=== PATIENT | male | born 1950 | race Caucasian/White ===

== ENCOUNTER 2017-12-28 15:48 | Inpatient (IN) ==
[2017-12-28] MEDS ORDERED: Tetanus/Diphtheria Toxoid Adult Vaccine Inj 0.5 ML Vial IM ONE (17:43)
[2017-12-28] MEDS ORDERED: Sod Chloride 0.9% Inj 1,000 ML IV.CONT SCH ×2 (17:45→19:30)
[2017-12-28 18:06] LABS: Baso # (Auto) 0.1 th/mm3 (0.0-0.2); Baso % (Auto) 1.5 % (0.0-2.0); Eos # (Auto) 0.1 th/mm3 (0.0-0.4); Eos % (Auto) 1.1 % (0.0-4.0); Hematocrit 39.2 % (39.0-51.0); Hemoglobin 13.6 gm/dL (13.0-17.0); Lymph # (Auto) 1.2 th/mm3 (1.0-4.8); Lymph % (Auto) 15.8 % (9.0-44.0); Mean Corpuscular HGB Conc 34.7 % (32.0-36.0); Mean Corpuscular Hemoglobin 34.2 pg (27.0-34.0); Mean Corpuscular Volume 98.8 fL (80.0-100.0); Mean Platelet Volume 7.3 fL (7.0-11.0); Mono # (Auto) 0.8 th/mm3 (0.0-0.9); Mono % (Auto) 10.4 % (0.0-8.0); Neut # (Auto) 5.2 th/mm3 (1.8-7.7); Neut % (Auto) 71.2 % (16.0-70.0); Platelet Count 361 th/mm3 (150-450); Red Blood Count 3.97 mil/mm3 (4.50-5.90); Red Cell Distribution Width 12.4 % (11.6-17.2); White Blood Count 7.4 th/mm3 (4.0-11.0)
[2017-12-28 18:28] LABS: Troponin I 0.36 ng/mL (0.02-0.05)
[2017-12-28 18:38] LABS: Alanine Aminotransferase 23 U/L (12-78); Alkaline Phosphatase 89 U/L (45-117); Anion Gap 14 meq/L (5-15); Aspartate Aminotransferase 18 U/L (15-37); Blood Urea Nitrogen 79 mg/dL (7-18); Calcium 8.6 mg/dL (8.5-10.1); Carbon Dioxide 16.8 meq/L (21.0-32.0); Chloride 91 meq/L (98-107); Glomerular Filtration Rate 12 mL/min (>89); Glucose,Random 91 mg/dL (74-106); Potassium 3.9 meq/L (3.5-5.1); Total Protein 7.3 g/dL (6.4-8.2)
[2017-12-28 18:44] LABS: Sodium 122 meq/L (136-145)
--- NOTE | 2017-12-28 19:10 | ED ---
HPI General Chief Complaint: Dizziness Stated Complaint: Dizziness/Fall/Hit Head Time Seen by Provider: 12/28/17 17:43 History of Present Illness HPI Narrative: This is a 67-year-old male with a history of hypertension, presents via private vehicle with complaints of dizziness and weakness. Patient states that he has not been feeling well over the last several days. He reports that he feels extremely weak and dizzy. He denies any chest pain, chest pressure. He reports that his blood pressure has been low. His ex- told both he and his nephew who is at the bedside that she thought it may be due to overmedication. Patient denies any shortness of breath. He does report heavy alcohol use up until Tuesday. He does smoke marijuana but denies tobacco products. There are no other complaints at time of examination. Related Data Home Medications Medication Instructions Recorded Confirmed citalopram 20 mg PO DAILY 12/28/17 12/28/17 diphenoxylate-atropine [Lomotil] 1 tab PO Q6-8H PRN 12/28/17 12/28/17 lisinopril 10 mg PO DAILY 12/28/17 12/28/17 metronidazole [Flagyl] 500 mg PO TID 12/28/17 12/28/17 Allergies Allergy/AdvReac Type Severity Reaction Status Date / Time No Known Allergies Allergy Verified 12/28/17 17:38 Review of Systems Constitutional Denies chills and Denies fever(s) Eyes Reports system reviewed and no additional complaints, except as docu ENT Reports dry mouth and Denies neck pain Cardiovascular Denies chest pain, Denies rapid heart rate, Denies palpitations and Reports other (Weakness.) Respiratory Denies pain on inspiration, Denies dyspnea and Denies dyspnea on exertion Gastrointestinal Denies abdominal pain, Denies nausea, Denies vomiting and Reports other (Poor appetite.) Genitourinary Denies dysuria and Reports other (Decreased urine output) Musculoskeletal Denies numbness, Denies tingling and Reports other (Generalized weakness) Neurologic Reports dizziness, Reports headache(s) and Reports weakness PMFSH Social History Social History Substance History: Active Abuse Second Hand Smoke Exposure: No Smoking Status: Former smoker Tobacco Type: Cigarettes How Often Do You Have a Drink Containing Alcohol: Never Recent Travel in [facility] within the Last 8 Weeks: No Recent Out of Country Travel within the Last 8 Weeks: No Substance Abuse Detail Marijuana: Substance Use Status: Active Route Used Substance Abuse: Inhalation Reason for Use: Feels Good Immunization History Tetanus Immunization: Unsure Exam Narrative Exam Narrative: GENERAL: Elderly ill-appearing male in no acute respiratory distress. SKIN: Focused skin assessment warm/dry. Positive skin tenting HEAD: Atraumatic. Normocephalic. EYES: No scleral icterus. No injection or drainage. ENT: No nasal bleeding or discharge. Mucous membranes pink and moist. NECK: Trachea midline. Supple. CARDIOVASCULAR: Regular rate and rhythm. No murmur appreciated. RESPIRATORY: No accessory muscle use. Clear to auscultation. Breath sounds equal bilaterally. GASTROINTESTINAL: Abdomen soft, non-tender, nondistended. Scaphoid. MUSCULOSKELETAL: No obvious deformities. No clubbing. No cyanosis. No edema. Skin tenting. NEUROLOGICAL: Awake and alert. No obvious cranial nerve deficits. Motor grossly within normal limits. Normal speech. Course Initial Documented Vital Signs Temperature 97.7 F 12/28/17 16:10 Pulse Rate 85 12/28/17 16:10 Respiratory Rate 16 12/28/17 16:10 Blood Pressure 91/51 L 12/28/17 16:10 Pulse Oximetry 99 12/28/17 16:10 Last Documented Vital Signs Temperature 97.7 F 12/28/17 16:10 Pulse Rate 68 12/28/17 18:34 Respiratory Rate 18 12/28/17 18:34 Blood Pressure 105/60 12/28/17 18:34 Pulse Oximetry 96 12/28/17 18:34 Critical Care Time Critical Care Time: Yes Total Critical Care Time: 45 Attestation: Aggregate critical care time was 45 minutes. Time to perform other separately billable procedures was not included in the critical care time. My time did not include minutes spent treating any other patients simultaneously or on activities that did not directly contribute to the patient's treatment. The services I provided to this patient were to treat and/or prevent clinically significant deterioration that could result in: I provided critical care services requiring my management, as noted below: Chart data review, documentation time, medication orders and management, vital sign assessments/reviewing monitor data, ordering and reviewing lab tests, ordering and interpreting/reviewing x-rays and diagnostic studies, care of the patient and discussion of the patient with the admitting physicians. Medical Decision Making MDM Narrative Medical decision making narrative: 67-year-old male with history of hypertension , presents here with dizziness and weakness. Patient has an acute ST elevation [place] on his cardiac EKG. His troponin is 0.35. Patient is also in acute renal failure and hyponatremicc. Case was discussed with on-call director of accounts receivable, Dr. Aamir Cardoso who agrees at this point he is not a cardiac cath candidate. Aspirin was held at this point until the CAT scan was done. Once CAT scan is back and negative, he will be started on 324 of aspirin and started on a heparin drip. Case was discussed with Dr. Harding, fur operator, who agrees with the transfer to the main hospital for admission. Medical Screen Exam Complete: Yes Emergency Medical Condition: Yes Differential Diagnosis Differential Diagnosis: Dehydration versus metabolic derangement versus infection versus intracranial injury Lab Data Result diagrams: 12/28/17 17:45 12/28/17 17:45 Lab Results 12/28/17 12/28/17 12/28/17 Range/Units 17:45 17:45 17:45 CBC w Diff Auto diff final WBC 7.4 (4.0-11.0) th/mm3 RBC 3.97 L (4.50-5.90) mil/mm3 Hgb 13.6 (13.0-17.0) gm/dL Hct 39.2 (39.0-51.0) % MCV 98.8 (80.0-100.0) fL MCH 34.2 H (27.0-34.0) pg MCHC 34.7 (32.0-36.0) % RDW 12.4 (11.6-17.2) % Plt Count 361 (150-450) th/mm3 MPV 7.3 (7.0-11.0) fL Neut % (Auto) 71.2 H (16.0-70.0) % Lymph % (Auto) 15.8 (9.0-44.0) % [place] % (Auto) 10.4 H (0.0-8.0) % Eos % (Auto) 1.1 (0.0-4.0) % Baso % (Auto) 1.5 (0.0-2.0) % Neut # (Auto) 5.2 (1.8-7.7) th/mm3 Lymph # (Auto) 1.2 (1.0-4.8) th/mm3 [place] # (Auto) 0.8 (0.0-0.9) th/mm3 Eos # (Auto) 0.1 (0.0-0.4) th/mm3 Baso # (Auto) 0.1 (0.0-0.2) th/mm3 WBC Differential . Differential Comment . Sodium 122 L* (136-145) meq/L Potassium 3.9 (3.5-5.1) meq/L Chloride 91 L (98-107) meq/L Carbon Dioxide 16.8 L (21.0-32.0) meq/L Anion Gap 14 (5-15) meq/L BUN 79 H (7-18) mg/dL Creatinine 4.90 H (0.60-1.30) mg/dL Estimated GFR 12 L (>89) mL/min Random Glucose 91 (74-106) mg/dL Calcium 8.6 (8.5-10.1) mg/dL Total Bilirubin 0.3 (0.2-1.0) mg/dL AST 18 (15-37) U/L ALT 23 (12-78) U/L Alkaline Phosphatase 89 (45-117) U/L Total Creatine Kinase 93 (39-308) U/L Troponin I 0.36 H (0.02-0.05) ng/mL Total Protein 7.3 (6.4-8.2) g/dL Albumin 4.0 (3.4-5.0) g/dL Imaging Data Radiologist's impression: Head CT 12/28/17 17:43 CONCLUSION: 1. Negative trauma CT. . Discharge Plan Discharge Disposition Patient Disposition: 30 Still Patient Discharge Details Diagnosis: Acute ST elevation myocardial infarction (STEMI), Acute renal failure, Hyponatremia Physicians Team ED Provider: Parish Harrell Primary Care Provider: Michel Bonilla Rxs /Orders / Referrals /Forms Prescriptions: No Action diphenoxylate-atropine [Lomotil] 2.5-0.025 mg Tablet 1 tab PO Q6-8H PRN (Reason: Diarrhea) RF: 0 metronidazole [Flagyl] 500 mg Tablet 500 mg PO TID RF: 0 citalopram 20 mg Tablet 20 mg PO DAILY RF: 0 lisinopril 10 mg Tablet 10 mg PO DAILY RF: 0 Status ED Status: With Doctor
[2017-12-28] MEDS ORDERED: Acetaminophen 325 MG Tablet PO PRN (19:21)
[2017-12-28] MEDS ORDERED: Bisacodyl 10 MG Supp RECTAL PRN (19:21)
[2017-12-28] MEDS ORDERED: Morphine Sulfate Inj 2 MG/ML Vial IV.PUSH PRN (19:21)
[2017-12-28] MEDS ORDERED: Aspirin 325 MG Tablet PO ONE (19:24)
[2017-12-28] MEDS ORDERED: Heparin 10,000 UNITS/10 ML Vial (for IV use) IV.PUSH STA (19:24)
--- NOTE | 2017-12-28 19:25 | CT ---
EXAM DATE: 12/28/2017 7:19 PM EDT AGE/SEX: 67 years / Male INDICATIONS: Trauma. Fall. Cephalgia. CLINICAL DATA: This is the patient's initial encounter. Patient reports that signs and symptoms have been present for 1 day and indicates a pain score of 7/10. MEDICAL/SURGICAL HISTORY: Hypertension. None. RADIATION DOSE: 63.93 CTDI (mGy) COMPARISON: No prior exams available for comparison. TECHNIQUE: CT of the head without contrast. Using automated exposure control and adjustment of the mA and/or kV according to patient size, radiation dose was kept as low as reasonably achievable to ob tain optimal diagnostic quality images. DICOM format image data is available electronically for revi ew and comparison. FINDINGS: Cerebrum: The ventricles are normal for age. No evidence of midline shift, mass lesion, hemorrhage or acute infarction. No extraaxial fluid collections are seen. Posterior Fossa: The cerebellum and brainstem are intact. The 4th ventricle is midline. The cerebe llopontine angle is unremarkable. Extracranial: The visualized portion of the orbits is intact. Skull: The calvaria is intact. No evidence of skull fracture. CONCLUSION: 1. Negative trauma CT. . Electronically signed by: Devin Rothman MD 12/28/2017 7:23 PM EDT
--- NOTE | 2017-12-28 19:29 | CT ---
EXAM DATE: 12/28/2017 7:22 PM EDT AGE/SEX: 67 years / Male INDICATIONS: Trauma. Fall. Neck pain. CLINICAL DATA: This is the patient's initial encounter. Patient reports that signs and symptoms have been present for 1 day and indicates a pain score of 7/10. MEDICAL/SURGICAL HISTORY: Hypertension. None. RADIATION DOSE: 26.69 CTDI (mGy) COMPARISON: . TECHNIQUE: Contiguous axial images were obtained using helical multirow detector technique. The vol umetric data was post-processed with multiplanar reconstruction in oblique axial, sagittal, and coron al planes. Using automated exposure control and adjustment of the mA and/or kV according to patient s ize, radiation dose was kept as low as reasonably achievable to obtain optimal diagnostic quality paxton ges. DICOM format image data is available electronically for review and comparison. FINDINGS: Vertebrae: Normal vertebral body height. Diffuse osteopenia. Discs: Diffuse degenerative disc changes are present with disc space narrowing and anterior spurring. Alignment: Normal. No subluxation. The axial images demonstrate that the vertebral bodies and posterior elements are intact. Degenerativ e disc changes noted with disc osteophyte complexes. There are hypertrophic changes involving the fac et joints. CONCLUSION: 1. Negative trauma CT. Electronically signed by: Devin Rothman MD 12/28/2017 7:28 PM EDT
[2017-12-28 19:48] LABS: Activated Partial Thrombo Time 26.7 sec (24.3-30.1); INR 0.9 Ratio; Prothrombin Time 9.3 sec (9.8-11.6)
[2017-12-28 19:58] LABS: Baso # (Auto) 0.1 th/mm3 (0.0-0.2); Eos # (Auto) 0.1 th/mm3 (0.0-0.4); Eos % (Auto) 1.5 % (0.0-4.0); Hematocrit 38.5 % (39.0-51.0); Hemoglobin 13.5 gm/dL (13.0-17.0); Lymph % (Auto) 13.8 % (9.0-44.0); Mean Corpuscular HGB Conc 35.2 % (32.0-36.0); Mean Corpuscular Hemoglobin 34.5 pg (27.0-34.0); Mean Corpuscular Volume 98.1 fL (80.0-100.0); Mean Platelet Volume 7.3 fL (7.0-11.0); Mono # (Auto) 0.7 th/mm3 (0.0-0.9); Mono % (Auto) 9.3 % (0.0-8.0); Neut # (Auto) 5.2 th/mm3 (1.8-7.7); Neut % (Auto) 74.4 % (16.0-70.0); Platelet Count 353 th/mm3 (150-450); Red Blood Count 3.92 mil/mm3 (4.50-5.90); White Blood Count 7.1 th/mm3 (4.0-11.0)
[2017-12-28 20:22] LABS: Troponin I 0.28 ng/mL (0.02-0.05)
[2017-12-28] MEDS: Heparin Drip 25,000 UNIT/250 ML BAG IV.CONT PRN (20:32)
[2017-12-28 20:42] LABS: Calcium 8.4 mg/dL (8.5-10.1); Carbon Dioxide 15.6 meq/L (21.0-32.0); Potassium 3.8 meq/L (3.5-5.1)
[2017-12-28] MEDS ORDERED: Sod Chloride 0.9% Inj 1,000 ML IV.SIG SCH (22:00)
--- NOTE | 2017-12-28 22:08 | P.HPCC ---
History of Present Illness Primary Care Physician: Michel Bonilla DO Chief Complaint: Recurrent fall, fatigue History of Present Illness: This is a 67-year-old male with a history of recently diagnosed hypertension, alcohol dependence who presented to the emergency department at [facility] for evaluation of dizziness and weakness. Not feeling well over the last several days, had been kami weak and dizzy with recurrent falls. He denies any chest pain. He had been recently started on lisinopril for hypertension. He also gives a history of heavy alcohol use more than 6 beers a day, last drink was 2 days ago Tuesday. Patient was hypotensive in the ED blood pressure 81/44. He received 2 L normal saline boluses. Lab work showed sodium was 122 BUN 79 creatinine 4.9, troponin was 0.36. Patient was essentially anuric since arrival to the ED. EKG showed ST elevations in the inferior leads however patient completely denied chest pain. Dr. Cardoso was contacted by Dr. Harrell who requested patient to be transferred to the [facility] hospital. Once creatinine improves and patient stabilizes he will consider cardiac catheterization. I evaluated the patient in the CVICU. He appears critically ill dehydrated. He still has not made any urine. I have requested Aponte to be inserted will give additional 1 L fluid bolus. On further history he completely CV denies chest pain. Even though he has ST elevations in the inferior leads his initial troponin was 0.36 and repeat troponin is trending down to 0.28. I will check a repeat EKG but I doubt at this time he meets STEMI criteria. CT of the head and neck had been negative. I have ordered aspirin and IV heparin. Cardiology and nephrology consults are pending at this time. 2 D Echo also ordered Inpatient Certification: I certify that the inpatient services were ordered in accordance with Medicare regulations governing the order. This includes certification that hospital inpatient services are reasonable and necessary and in the case of services not specified as inpatient-only under 42 CFR 419.22(n), that they are appropriately provided as inpatient services in accordance to with the 2-midnight benchmark under 43 CFR 412.3(e) Estimated Total Length of Stay (Days): 7 Plans for Post Hospital Care: Not yet determined Review of Systems All other systems reviewed negative except as stated in HPI PMFSH - History History Provided By: Patient - Medical History Medical History: Medical History (Last Reviewed 12/28/17 @ 21:46 by Gladis Huitron RN) Chronic diarrhea Depression Hypertension Squamous cell carcinoma - Tobacco History Second Hand Smoke Exposure: No Tobacco Use In Past 30 Days: No Smoking Status: Former smoker Tobacco Type: Cigarettes - Alcohol History How Often Do You Have a Drink Containing Alcohol: Never - Substance Use History Substance History: Active Abuse - Substance Use Type Marijuana Status: Active Route Used: Inhalation Reason for Use: Feels Good - Travel History Recent Travel in the [place] Within the Last 8 Weeks: No Recent Travel Out of the Country Within the Last 8 Weeks: No - Immunization History Tetanus Immunization: Unsure Medications and Allergies Active Medications: Active Medications Acetaminophen (Tylenol) 650 mg PO Q6H PRN PRN Reason: PAIN 1-2 AND/OR FEVER >101F Al Hydroxide/Mg Hydroxide (Milk Of Magnerin Liq) 30 ml PO Q12H PRN PRN Reason: Mild Constipation Albuterol (Duoneb Neb (Prn)) 1 ampul NEB Q2HR NEB PRN PRN Reason: WHEEZING Aspirin (Aspirin Chew) 81 mg PO DAILY GUERRERO Bisacodyl (Dulcolax Supp) 10 mg RECTAL DAILY PRN PRN Reason: SEVERE CONSITIPATION Chlorhexidine Gluconate (Chlorhexidine 2% Cloth) 3 pack TOPICAL DAILY@0400 GUERRERO Stop: 01/03/18 03:59 Chlorhexidine Gluconate (Chlorhexidine 2% Cloth) 3 pack TOPICAL DAILY@0400 PRN PRN Reason: Extra cloth needed Stop: 01/03/18 03:59 Famotidine (Pepcid Pf Inj) 20 mg IV.PUSH Q12HR GUERRERO Sodium Chloride (Ns Inj) 1,000 mls @ 100 mls/hr IV.CONT .Q10H GUERRERO Last Admin: 12/28/17 17:52 Dose: 100 mls/hr Heparin Sodium/Dextrose (Heparin/D5w 25,000 U/250 Ml) 25,000 unit in 250 mls @ 0 mls/hr IV.CONT TITRATE PRN; Protocol PRN Reason: Per Protocol Last Admin: 12/28/17 20:32 Dose: 900 units/hr, 9 mls/hr Sodium Chloride (Ns Inj) 1,000 mls @ 100 mls/hr IV.CONT .Q10H GUERRERO Sodium Chloride (Ns Inj) 1,000 mls @ 84 mls/hr IV.CONT .[id number] GUERRERO Sodium Chloride (Ns Inj) 1,000 mls @ 1,000 mls/hr IV.SIG BOLUS [facility] Stop: 12/28/17 22:59 Lactulose (Lactulose Liq) 30 ml PO DAILY PRN PRN Reason: SEVERE CONSITIPATION Morphine Sulfate (Morphine Inj) 2 mg IV.PUSH Q2H PRN PRN Reason: PAIN SCALE 6 TO 10 Senna/Docusate Sodium (Park-Colace) 1 tab PO BID [facility] Sennosides (Senokot) 17.2 mg PO Q12H PRN PRN Reason: Moderate Constipation Sodium Chloride (Ns Flush) 2 ml IV.FLUSH PRN PRN PRN Reason: FLUSH AFTER USING IV ACCESS Sodium Chloride (Ns Flush) 2 ml IV.FLUSH PRN PRN PRN Reason: FLUSH AFTER USING IV ACCESS Sodium Chloride (Ns Flush) 2 ml IV.FLUSH BID GU[facility]ERO Sodium Chloride (Ns Flush) 2 ml IV.FLUSH PRN PRN PRN Reason: FLUSH AFTER USING IV ACCESS Allergies Allergy/AdvReac Type Severity Reaction Status Date / Time No Known Allergies Allergy Verified 12/28/17 17:38 Home Medications Medication Instructions Recorded Confirmed Type citalopram 20 mg PO DAILY 12/28/17 12/28/17 History diphenoxylate-atropine [Lomotil] 1 tab PO Q6-8H PRN 12/28/17 12/28/17 History lisinopril 10 mg PO DAILY 12/28/17 12/28/17 History metronidazole [Flagyl] 500 mg PO TID 12/28/17 12/28/17 History Results - Labs CBC & Chem 7: 12/28/17 19:40 12/28/17 19:40 Labs: Short CBC 12/28/17 12/28/17 Range/Units 17:45 19:40 WBC 7.4 7.1 (4.0-11.0) th/mm3 Hgb 13.6 13.5 (13.0-17.0) gm/dL Hct 39.2 38.5 L (39.0-51.0) % Plt Count 361 353 (150-450) th/mm3 BMP 12/28/17 12/28/17 17:45 19:40 Sodium 122 L* 122 L* Potassium 3.9 3.8 Chloride 91 L 91 L Carbon Dioxide 16.8 L 15.6 L BUN 79 H 80 H Creatinine 4.90 H 4.90 H Calcium 8.6 8.4 L Cardiac Enzymes 12/28/17 12/28/17 Range/Units 17:45 19:40 Total Creatine Kinase 93 89 (39-308) U/L Troponin I 0.36 H 0.28 H (0.02-0.05) ng/mL Liver Function 12/28/17 Range/Units 17:45 Total Bilirubin 0.3 (0.2-1.0) mg/dL AST 18 (15-37) U/L ALT 23 (12-78) U/L Alkaline Phosphatase 89 (45-117) U/L Albumin 4.0 (3.4-5.0) g/dL - Imaging Impressions Cervical Spine CT 12/28/17 17:43 CONCLUSION: 1. Negative trauma CT. Head CT 12/28/17 17:43 CONCLUSION: 1. Negative trauma CT. . Exam Vital signs: Vital Signs 12/28/17 16:10 12/28/17 17:46 12/28/17 18:34 Temperature 97.7 F Pulse Rate 85 88 68 Respiratory Rate 16 18 18 Blood Pressure 91/51 L 81/44 L 105/60 Pulse Oximetry 99 95 96 12/28/17 20:28 Temperature Pulse Rate 72 Respiratory Rate 18 Blood Pressure 108/58 L Pulse Oximetry 97 Intake & Output 12/28/17 12/28/17 12/29/17 06:59 18:59 06:59 Weight 73.6 kg Narrative: GENERAL: Ill-appearing male who is dehydrated in moderate distress SKIN: warm/dry. HEAD: Abrasion on the forehead. Normocephalic. EYES: No scleral icterus. No injection or drainage. ENT: No nasal bleeding or discharge. Mucous membranes dry NECK: Trachea midline. Supple. CARDIOVASCULAR: Regular rate and rhythm. No murmur appreciated. RESPIRATORY: No accessory muscle use. Clear to auscultation. Breath sounds equal bilaterally. GASTROINTESTINAL: Abdomen soft, non-tender, nondistended. Scaphoid. MUSCULOSKELETAL: No obvious deformities. No clubbing. No cyanosis. No edema. NEUROLOGICAL: Awake and alert. No obvious cranial nerve deficits. Motor grossly within normal limits. No evidence of alcohol withdrawal Septic Shock Reassessment Septic shock perfusion: reassessment completed Caprini VTE Risk Assessment Caprini VTE Risk Assessment: Moderate/High Risk (score >= 2) Caprini Risk Assessment Model: Point Value = 1 Point Value = 2 Point Value = 3 Point Value = 5 Age 41-60 Minor surgery BMI > 25 kg/m2 Swollen legs Varicose veins or History of unexplained or recurrent spontaneous Oral contraceptives or hormone replacement Sepsis (< 1 month) Serious lung disease, including pneumonia (< 1 month) Abnormal pulmonary function Acute myocardial infarction Congestive heart failure (< 1 month) History of inflammatory bowel disease Medical patient at bed rest Age 61-74 Arthroscopic surgery Major open surgery (> 45 min) Laparoscopic surgery (> 45 min) Malignancy Confined to bed (> 72 hours) Immobilizing plaster cast Central venous access Age >= 75 History of VTE Family history of VTE Factor V Leiden Prothrombin [id number] Lupus anticoagulant Anticardiolipin antibodies Elevated serum homocysteine Heparin-induced thrombocytopenia Other congenital or acquired thrombophilia Stroke (< 1 month) Elective arthroplasty Hip, pelvis, or leg fracture Acute spinal cord injury (< 1 month) Prophylaxis Regimen: Total Risk Factor Score Risk Level Prophylaxis Regimen 0-1 Low Early ambulation 2 Moderate Order ONE of the following: *Sequential Compression Device (SCD) *Heparin 5000 units SQ BID 3-4 Higher Order ONE of the following medications: *Heparin 5000 units SQ TID *Enoxaparin/Lovenox 40 mg SQ daily (WT < 150 kg, CrCl > 30 mL/min) *Enoxaparin/Lovenox 30 mg SQ daily (WT < 150 kg, CrCl > 10-29 mL/min) *Enoxaparin/Lovenox 30 mg SQ BID (WT < 150 kg, CrCl > 30 mL/min) AND/OR *Sequential Compression Device (SCD) 5 or more Highest Order ONE of the following medications: *Heparin 5000 units SQ TID (Preferred with Epidurals) *Enoxaparin/Lovenox 40 mg SQ daily (WT < 150 kg, CrCl > 30 mL/min) *Enoxaparin/Lovenox 30 mg SQ daily (WT < 150 kg, CrCl > 10-29 mL/min) *Enoxaparin/Lovenox 30 mg SQ BID (WT < 150 kg, CrCl > 30 mL/min) AND *Sequential Compression Device (SCD) Assessment and Plan - Assessment and Plan Plan: NEURO: Alcohol dependence -Supplement multivitamin thiamine -Watch closely for alcohol withdrawal, no indication for CIWA protocol at this time RESP: -DuoNeb every 6 hours as needed CV: Hypotension Elevated troponin ST elevation in the inferior leads/possible STEMI -Hypotension most likely secondary to dehydration -Give total 3 L IV fluids, maintenance fluid at 84 mL/h of normal saline -Patient denies chest pain troponin initially 0.3 6 repeat 0.28 -Will repeat EKG but doubt STEMI -Cardiology Dr. Cardoso is aware -Placed on IV heparin and aspirin, cannot use beta-blockers due to hypotension -Await 2d echo, repeat troponin GI: -Renal diet, IV famotidine : Acute kidney failure -Monitor renal function closely. Place Aponte catheter. -Renal ultrasound, nephrology consult -Check UA complete -Renal failure secondary to dehydration and ATN ID: -No indication for antibiotics at this time HEME: -Monitor CBC, coags ENDO: Hyponatremia -Continue IV hydration with normal saline, target slow correction of sodium PROPH: -Bilateral lower extremity SCDs. IV heparin, IV famotidine LINES: -Utilize peripheral IVs, central line if needed CC time 42 min
[2017-12-29 00:05] LABS: Amphetamine Screen,Urine Neg (Neg); Barbiturate Screen,Urine Neg (Neg); Cannabinoid Screen,Urine Pos (Neg); Cocaine Screen,Urine Neg (Neg)
[2017-12-29 00:06] LABS: Opiate Screen,Urine Neg (Neg)
[2017-12-29] MEDS: Senna/Docusate Sodium 8.6/50 MG Tablet PO SCH ×3 (01:05→20:40)
[2017-12-29] MEDS: Sodium Bicarbonate 8.4% Inj 50 MEQ/50 ML Syringe IV.PUSH ONE ×2 (01:08→01:41)
[2017-12-29] MEDS: Sod Chloride 0.9% Inj 1,000 ML IV.CONT SCH ×2 (01:08→12:35)
[2017-12-29] MEDS: Famotidine PF Inj 20 MG/2 ML Vial IV.PUSH SCH ×4 (01:08→20:28)
[2017-12-29] MEDS ORDERED: Chlorhexidine Gluconate 2% 1 Pack (2 Cloths) TOPICAL PRN (04:00)
[2017-12-29 04:04] LABS: Bilirubin,Urine Negative (Negative); Clarity,Urine Slightly Cloudy (Clear); Color,Urine Yellow (Yellw/Straw); Glucose,Urine (UA) Negative (Negative); Leukocyte Esterase,Urine Small (Negative); Nitrite,Urine Negative (Negative); Urobilinogen,Urine 0.2 mg/dL (Less than 2)
[2017-12-29] MEDS: Chlorhexidine Gluconate 2% 1 Pack (2 Cloths) TOPICAL SCH (04:12)
[2017-12-29 04:21] LABS: RBC,Urine Innumerable /hpf (0-3); Squamous Epithelial Cell,Urine 0-5 /hpf (0-5)
[2017-12-29 04:22] LABS: Bacteria,Urine Few /hpf; Hyaline Casts,Urine 0-3 /lpf (0-3); Mucus,Urine Moderate /lpf (Occasional)
[2017-12-29 04:23] LABS: Specific Gravity,Urine 1.011 (1.002-1.035)
[2017-12-29 08:29] LABS: Baso % (Auto) 0.6 % (0.0-2.0); Eos # (Auto) 0.1 th/mm3 (0.0-0.4); Eos % (Auto) 0.9 % (0.0-4.0); Lymph # (Auto) 0.7 th/mm3 (1.0-4.8); Lymph % (Auto) 12.1 % (9.0-44.0); Mean Corpuscular HGB Conc 35.3 % (32.0-36.0); Mean Corpuscular Volume 99.3 fL (80.0-100.0); Mean Platelet Volume 7.9 fL (7.0-11.0); Mono # (Auto) 0.5 th/mm3 (0.0-0.9); Mono % (Auto) 8.5 % (0.0-8.0); Neut # (Auto) 4.6 th/mm3 (1.8-7.7); Neut % (Auto) 77.9 % (16.0-70.0); Platelet Count 309 th/mm3 (150-450); Red Blood Count 3.42 mil/mm3 (4.50-5.90); Red Cell Distribution Width 12.7 % (11.6-17.2); White Blood Count 5.9 th/mm3 (4.0-11.0)
[2017-12-29 09:22] LABS: Albumin 2.8 g/dL (3.4-5.0); Calcium 7.4 mg/dL (8.5-10.1); Carbon Dioxide 16.7 meq/L (21.0-32.0); Magnesium 1.9 mg/dL (1.5-2.5); Phosphorus 4.2 mg/dL (2.5-4.9); Potassium 3.8 meq/L (3.5-5.1); Total Protein 5.5 g/dL (6.4-8.2); Troponin I 0.26 ng/mL (0.02-0.05)
--- NOTE | 2017-12-29 10:37 | ECHRPT ---
Indication: CHEST PAIN CONCLUSIONS Normal left ventricular size. Wall thickness is measured at the upper limits of normal. The left ventricular systolic function is low normal with an estimated ejection fraction in the rang e of 50- 55%. Calcification of both mitral valve leaflets. Severe mitral annular calcification. There is mild tricuspid valve regurgitation. The estimated pulmonary arterial pressure is 23 mmHg. BP: / HR: Rhythm: MEASUREMENTS (Male / Female) Normal Values Technical Quality: 2D ECHO LV Diastolic Diameter PLAX 2.8 cm 4.2 - 5.9 / 3.9 - 5.3 cm LV Systolic Diameter PLAX 2.3 cm IVS Diastolic Thickness 1.1 cm 0.6 - 1.0 / 0.6 - 0.9 cm LVPW Diastolic Thickness 1.3 cm 0.6 - 1.0 / 0.6 - 0.9 cm LV Relative Wall Thickness 0.9 RV Internal Dim ED PLAX 2.8 cm LVOT Diameter 1.6 cm Aortic Root Diameter 3.0 cm LA Systolic Diameter LX 3.6 cm 3.0 - 4.0 / 2.7 - 3.8 cm LV Ejection Fraction MOD BP 50.6 % >= 55 % LV Ejection Fraction MOD 4C 51.9 % LV Ejection Fraction 4C AL 54.1 % LV Ejection Fraction MOD 2C 51.5 % LV Ejection Fraction 2C AL 52.9 % M-MODE Aortic Root Diameter MM 3.3 cm LA Systolic Diameter MM 2.8 cm LA Ao Ratio MM 0.8 AV Cusp Separation MM 1.7 cm DOPPLER AV Peak Velocity 176.0 cm/s AV Peak Gradient 12.4 mmHg LVOT Peak Velocity 130.0 cm/s LVOT Peak Gradient 6.8 mmHg AV Area Cont Eq pk 1.5 cm Mitral E Point Velocity 68.0 cm/s Mitral A Point Velocity 122.0 cm/s Mitral E to A Ratio 0.6 LV E' Lateral Velocity 8.2 cm/s Mitral E to LV E' Lateral Ratio 8.3 LV E' Septal Velocity 5.9 cm/s Mitral E to LV E' Septal Ratio 11.4 TR Peak Velocity 177.0 cm/s TR Peak Gradient 12.5 mmHg Right Atrial Pressure 10.0 mmHg Pulmonary Artery Systolic Pressu 22.5 mmHg Right Ventricular Systolic Press 22.5 mmHg FINDINGS LEFT VENTRICLE Normal left ventricular size. Wall thickness is measured at the upper limits of normal. The left ventricular systolic function is low normal with an estimated ejection fraction in the rang e of 50- 55%. There was limited left ventricular wall motion assessment due to poor endocardial visualization. RIGHT VENTRICLE Normal right ventricular size and systolic function. LEFT ATRIUM The left atrial size is normal. RIGHT ATRIUM The right atrial size is normal. ATRIAL SEPTUM Normal atrial septal thickness without atrial level shunting by limited color doppler interrogation. AORTA The aortic root and proximal ascending aorta are normal in size on limited imaging. MITRAL VALVE Calcification of both mitral valve leaflets. Severe mitral annular calcification. No mitral valve stenosis or regurgitation. AORTIC VALVE Trileaflet aortic valve. No aortic valve stenosis or regurgitation. TRICUSPID VALVE There is mild tricuspid valve regurgitation. The estimated pulmonary arterial pressure is 23 mmHg. PULMONARY VALVE No pulmonary valve regurgitation or stenosis. VESSELS The inferior vena cava is normal in size. PERICARDIUM No pericardial effusion. Binh Russell (Electronically Signed) Final Date:29 December 2017 10:36
--- NOTE | 2017-12-29 11:26 | P.CONNP ---
History of Present Illness Service: Nephrology Reason for Consult: ALEXANDRA, hyponatremia Primary Care Provider: Michel Bonilla DO Chief Complaint: Recurrent fall, fatigue History of Present Illness: Mr. Ruiz is a 67 year old male who has been having recurrent episodes of dizziness, weakness and falls. He was admitted with these complaints. Was found to have creatinine of 4.9 and serum Na of 122. Patient reports that he has been having diarrhea for several weeks. Took NSAID about 3 weeks ago. Also started taking Lisinopril about 3 weeks ago. Baseline renal function is not available. He also admits that he has some degree of nocturia, and therefore had reduced fluid intake. Patient was thought to have STEMI, plans were made for primary angioplasty, but because of renal failure, it was not accomplished. He is currently on Heparin drip. Cardiology on the case. Review of Systems Constitutional: Reports anorexia, Reports weakness Eyes: Denies blind spots, Denies blurry vision Cardiovascular: Denies chest pain, Denies excessive sweating, Denies shortness of breath Gastrointestinal: Denies abdominal pain Comments: diarrhea Musculoskeletal: Denies abnormal walking, Denies back pain PMFSH - History History Provided By: Patient - Medical History Medical History: Medical History (Last Reviewed 12/28/17 @ 21:46 by Gladis Huitron RN) Chronic diarrhea Depression Hypertension Squamous cell carcinoma - Tobacco History Second Hand Smoke Exposure: No Tobacco Use In Past 30 Days: No Smoking Status: Former smoker Tobacco Type: Cigarettes - Alcohol History How Often Do You Have a Drink Containing Alcohol: Never - Substance Use History Substance History: Active Abuse - Substance Use Type Marijuana Status: Active Route Used: Inhalation Reason for Use: Feels Good - Travel History Recent Travel in the [place] Within the Last 8 Weeks: No Recent Travel Out of the Country Within the Last 8 Weeks: No - Immunization History Tetanus Immunization: Unsure Medications and Allergies Active Medications: Active Medications Acetaminophen (Tylenol) 650 mg PO Q6H PRN PRN Reason: PAIN 1-2 AND/OR FEVER >101F Al Hydroxide/Mg Hydroxide (Milk Of Magnesia Liq) 30 ml PO Q12H PRN PRN Reason: Mild Constipation Albuterol (Duoneb Neb (Prn)) 1 ampul NEB Q2HR NEB PRN PRN Reason: WHEEZING Aspirin (Aspirin Chew) 81 mg PO DAILY [facility] Last Admin: 12/29/17 09:58 Dose: 81 mg Bisacodyl (Dulcolax Supp) 10 mg RECTAL DAILY PRN PRN Reason: SEVERE CONSITIPATION Chlorhexidine Gluconate (Chlorhexidine 2% Cloth) 3 pack TOPICAL DAILY@0400 [facility] Stop: 01/03/18 03:59 Last Admin: 12/29/17 04:12 Dose: Not Given Chlorhexidine Gluconate (Chlorhexidine 2% Cloth) 3 pack TOPICAL DAILY@0400 PRN PRN Reason: Extra cloth needed Stop: 01/03/18 03:59 Famotidine (Pepcid Pf Inj) 10 mg IV.PUSH Q12HR [facility] Heparin Sodium/Dextrose (Heparin/D5w 25,000 U/250 Ml) 25,000 unit in 250 mls @ 0 mls/hr IV.CONT TITRATE PRN; Protocol PRN Reason: Per Protocol Last Titration: 12/29/17 08:00 Dose: 600 units/hr, 6 mls/hr Ceftriaxone Sodium 1,000 mg/ (Sodium Chloride) 100 mls @ 200 mls/hr IV.SIG Q24H [facility] Last Infusion: 12/29/17 10:42 Dose: Infused Sodium Chloride (1/2 Normal Saline Inj) 1,000 mls @ 84 mls/hr IV.CONT .[id number] [facility] Lactulose (Lactulose Liq) 30 ml PO DAILY PRN PRN Reason: SEVERE CONSITIPATION Morphine Sulfate (Morphine Inj) 2 mg IV.PUSH Q2H PRN PRN Reason: PAIN SCALE 6 TO 10 Senna/Docusate Sodium (Park-Colace) 1 tab PO BID [facility] Last Admin: 12/29/17 10:00 Dose: Not Given Sennosides (Senokot) 17.2 mg PO Q12H PRN PRN Reason: Moderate Constipation Sodium Chloride (Ns Flush) 2 ml IV.FLUSH BID [facility] Last Admin: 12/29/17 09:59 Dose: 2 ml Sodium Chloride (Ns Flush) 2 ml IV.FLUSH PRN PRN PRN Reason: FLUSH AFTER USING IV ACCESS Allergies Allergy/AdvReac Type Severity Reaction Status Date / Time No Known Allergies Allergy Verified 12/28/17 17:38 Home Medications Medication Instructions Recorded Confirmed Type citalopram 20 mg PO DAILY 12/28/17 12/28/17 History diphenoxylate-atropine [Lomotil] 1 tab PO Q6-8H PRN 12/28/17 12/28/17 History lisinopril 10 mg PO DAILY 12/28/17 12/28/17 History metronidazole [Flagyl] 500 mg PO TID 12/28/17 12/28/17 History Exam Vital signs: Vital Signs 12/28/17 16:10 12/28/17 17:46 12/28/17 18:34 Temperature 97.7 F Pulse Rate 85 88 68 Respiratory Rate 16 18 18 Blood Pressure 91/51 L 81/44 L 105/60 Pulse Oximetry 99 95 96 12/28/17 20:28 12/28/17 21:30 12/28/17 23:00 Temperature 98.6 F Pulse Rate 72 96 H 93 H Respiratory Rate 18 16 Blood Pressure 108/58 L 91/54 L Pulse Oximetry 97 94 L 12/29/17 00:00 12/29/17 03:00 12/29/17 04:00 Temperature 98.6 F Pulse Rate 83 Respiratory Rate 18 16 18 Blood Pressure 103/54 L Pulse Oximetry 97 12/29/17 07:45 Temperature 97.4 F L Pulse Rate 83 Respiratory Rate 16 Blood Pressure 102/52 L Pulse Oximetry Intake & Output 12/28/17 12/29/17 12/29/17 18:59 06:59 18:59 Intake Total 1440 / 1440 100 / 100 Output Total 550 / 550 Balance 890 / 890 100 / 100 Weight 73.6 kg 72 kg Intake: IV 1200 / 1200 100 / 100 NS Inj 1,000 ML @ 100 mls/hr IV 300 / 300 .CONT .Q10H [facility] Rx#:[id number] NS Inj 1,000 ML @ 1000 mls/hr 900 / 900 IV.SIG BOLUS [facility] Rx#:[id number] Rocephin Inj 1,000 MG In NS Inj 100 / 100 100 ML @ 200 mls/hr IV.SIG Q24H [facility] Rx#:[id number] Oral 240 / 240 Output: Urine 550 / 550 Other: Date of Last Bowel Movement 12/27/17 12/29/17 Weight On Admission 72 kg - Constitutional no acute distress, chronically ill appearing, cooperative - Routine HEENT Exam Head: Present: normocephalic, atraumatic Eye: Present: EOMI, PERRL ENT: Present: mucous membranes moist - Routine Neck Exam Absent: JVD, carotid bruit, lymphadenopathy, thyromegaly - Routine Respiratory Exam Present: rhonchi, wheezes - Routine Cardiovascular Exam Present: RRR, S1, S2 - Routine Abdominal Exam Present: soft, normoactive bowel sounds - Routine Extremities Exam Absent: edema - Routine Neurological Exam Present: alert, oriented X3, CN II-XII intact, normal speech. Absent: facial asymmetry Results - Lab Results 12/29/17 07:30 12/29/17 07:30 Most recent lab results Calcium 7.4 mg/dL (8.5-10.1) L* D 12/29/17 07:30 Phosphorus 4.2 mg/dL (2.5-4.9) 12/29/17 07:30 Magnesium 1.9 mg/dL (1.5-2.5) 12/29/17 07:30 Assessment and Plan - Assessment (1) Acute renal failure Code(s): N17.9 - Acute kidney failure, unspecified Status: Acute Plan: Likely due to pre-renal azotemia. He has been having diarrhea for several weeks , also admits that he had reduced oral fluid intake. In addition, he was started on Lisinopril 3 weeks ago which could have dropped his BP more than what was desired. At this time, continue IVF. Renal function appears to have improved. No indication for dialysis at this time. Avoid NSAIDs and other nephrotoxic agents. Renal US has been ordered, it is pending. (2) Hyponatremia Code(s): E87.1 - Hypo-osmolality and hyponatremia Status: Acute Plan: Could be hypovolemic hyponatremia. It has improved, correction is more rapid than desired. I will change IVF to 1/2NS (3) Acute ST elevation myocardial infarction (STEMI) Code(s): I21.3 - ST elevation (STEMI) myocardial infarction of unspecified site Status: Acute Plan: Troponin is mildly elevated. Cardiology on the case. - Attending Attestation Thanks for the consult. I will follow. (1) Acute renal failure Qualifiers: Acute renal failure type: unspecified Qualified Code(s): N17.9 - Acute kidney failure, unspecified (3) Acute ST elevation myocardial infarction (STEMI) Qualifiers: Involved coronary artery: unspecified coronary artery Qualified Code(s): I21.3 - ST elevation (STEMI) myocardial infarction of unspecified site
--- NOTE | 2017-12-29 11:59 | P.PNCC ---
Subjective Subjective Remarks/Hospital Course: 12/28: This is a 67-year-old male with a history of recently diagnosed hypertension, alcohol dependence who presented to the emergency department at [facility] for evaluation of dizziness and weakness. Not feeling well over the last several days, had been kami weak and dizzy with recurrent falls. He denies any chest pain. He had been recently started on lisinopril for hypertension. He also gives a history of heavy alcohol use more than 6 beers a day, last drink was 2 days ago Tuesday. Patient was hypotensive in the ED blood pressure 81/44. He received 2 L normal saline boluses. Lab work showed sodium was 122 BUN 79 creatinine 4.9, troponin was 0.36. Patient was essentially anuric since arrival to the ED. EKG showed ST elevations in the inferior leads however patient completely denied chest pain. Dr. Cardoso was contacted by Dr. Harrell who requested patient to be transferred to the [facility]. Once creatinine improves and patient stabilizes he will consider cardiac catheterization. I evaluated the patient in the CVICU. He appears critically ill dehydrated. He still has not made any urine. I have requested Aponte to be inserted will give additional 1 L fluid bolus. On further history he completely CV denies chest pain. Even though he has ST elevations in the inferior leads his initial troponin was 0.36 and repeat troponin is trending down to 0.28. I will check a repeat EKG but I doubt at this time he meets STEMI criteria. CT of the head and neck had been negative. I have ordered aspirin and IV heparin. Cardiology and nephrology consults are pending at this time. 2 D Echo also ordered. 12/29: Resting comfortably in bed. Denies any chest pain or shortness of breath. Not in any acute distress. Objective Vital Signs / I&O: Vital Signs 12/28/17 16:10 12/28/17 17:46 12/28/17 18:34 Temperature 97.7 F Pulse Rate 85 88 68 Respiratory Rate 16 18 18 Blood Pressure 91/51 L 81/44 L 105/60 Pulse Oximetry 99 95 96 12/28/17 20:28 12/28/17 21:30 12/28/17 23:00 Temperature 98.6 F Pulse Rate 72 96 H 93 H Respiratory Rate 18 16 Blood Pressure 108/58 L 91/54 L Pulse Oximetry 97 94 L 12/29/17 00:00 12/29/17 03:00 12/29/17 04:00 Temperature 98.6 F Pulse Rate 83 Respiratory Rate 18 16 18 Blood Pressure 103/54 L Pulse Oximetry 97 12/29/17 07:00 12/29/17 07:45 Temperature 97.4 F L Pulse Rate 83 83 Respiratory Rate 16 Blood Pressure 102/52 L Pulse Oximetry Intake & Output 12/28/17 12/29/17 12/29/17 18:59 06:59 18:59 Intake Total 1440 / 1440 100 / 100 Output Total 550 / 550 Balance 890 / 890 100 / 100 Weight 73.6 kg 72 kg Intake: IV 1200 / 1200 100 / 100 NS Inj 1,000 ML @ 100 mls/hr IV 300 / 300 .CONT .Q10H [facility] Rx#:[id number] NS Inj 1,000 ML @ 1000 mls/hr 900 / 900 IV.SIG BOLUS [facility]ERO Rx#:[id number] Rocephin Inj 1,000 MG In NS Inj 100 / 100 100 ML @ 200 mls/hr IV.SIG Q24H [facility] Rx#:[id number] Oral 240 / 240 Output: Urine 550 / 550 Other: Date of Last Bowel Movement 12/27/17 12/29/17 Weight On Admission 72 kg Result Diagrams: 12/29/17 07:30 12/29/17 07:30 Imaging: Impressions Cervical Spine CT 12/28/17 17:43 CONCLUSION: 1. Negative trauma CT. Head CT 12/28/17 17:43 CONCLUSION: 1. Negative trauma CT. . Objective Remarks: GENERAL: Ill-appearing male laying in bed in no acute distress. SKIN: warm/dry. HEAD: Abrasion on the forehead. Normocephalic. EYES: No scleral icterus. No injection or drainage. ENT: No nasal bleeding or discharge. Mucous membranes dry NECK: Trachea midline. Supple. CARDIOVASCULAR: Regular rate and rhythm. No murmur appreciated. RESPIRATORY: No accessory muscle use. Clear to auscultation. Breath sounds equal bilaterally. GASTROINTESTINAL: Abdomen soft, non-tender, nondistended. Scaphoid. MUSCULOSKELETAL: No obvious deformities. No clubbing. No cyanosis. No edema. NEUROLOGICAL: Awake and alert. No obvious cranial nerve deficits. Motor grossly within normal limits. Assessment and Plan - Assessment and Plan Plan: NEURO: Alcohol dependence -Supplement multivitamin thiamine -Watch closely for alcohol withdrawal, no indication for CIWA protocol at this time RESP: -DuoNeb every 6 hours as needed CV: Hypotension Elevated troponin ST elevation in the inferior leads/possible STEMI -Hypotension most likely secondary to dehydration -Give total 3 L IV fluids on admission. Continue maintenance IV fluids -Patient denies chest pain troponin initially 0.3 6 repeat 0.28 -doubt STEMI -Cardiology Dr. Cardoso is aware -Placed on IV heparin and aspirin, cannot use beta-blockers due to hypotension -Await 2d echo, repeat troponin GI: -Renal diet, IV famotidine : Acute kidney failure -Monitor renal function closely. Place Aponte catheter. -Renal ultrasound, nephrology consult -Check UA complete -Renal failure secondary to dehydration and ATN ID: -No indication for antibiotics at this time HEME: -Monitor CBC, coags ENDO: Hyponatremia -Continue IV hydration with normal saline, target slow correction of sodium PROPH: -Bilateral lower extremity SCDs. IV heparin, IV famotidine LINES: -Utilize peripheral IVs, central line if needed
[2017-12-29] MEDS: Sodium Chloride 0.45 % Inj 1,000 ML IV.CONT SCH (13:00)
--- NOTE | 2017-12-29 15:27 | US ---
EXAM DATE: 12/29/2017 3:23 PM EDT AGE/SEX: 67 years / Male INDICATIONS: Increased BUN/Creatnine. CLINICAL DATA: This is the patient's initial encounter. Patient reports that signs and symptoms have been present for 1 day and indicates a pain score of 0/10. MEDICAL/SURGICAL HISTORY: Hypertension. Chronic diarrhea. Depression. Squamous cell carcinoma. None. COMPARISON: No prior exams available for comparison. MEASUREMENTS: Right Kidney:__9.9 x 5.0 x 5.0 cm Left Kidney:__11.6 x 5.0 x 5.6 cm FINDINGS: Right Kidney: Normal echotexture and cortical thickness. No mass or hydronephrosis. Left Kidney: Normal echotexture and cortical thickness. No mass or hydronephrosis. Bladder: Aponte catheter within decompressed bladder Other: None. CONCLUSION: 1. Kidneys are unremarkable. Aponte catheter in place Electronically signed by: Siva Ambrocio MD 12/29/2017 3:25 PM EDT
--- NOTE | 2017-12-29 16:27 | MB ---
cc: Joby Bradley MD DATE: 12/29/2017 REASON FOR CONSULTATION: For evaluation of myocardial infarction. HISTORY OF PRESENT ILLNESS: Tacho Ruiz is a 67-year-old man with no previous history of cardiac disease. He smoked; however, 2-3 packs a day from age 18 to age 62. He says he started getting ill 6 weeks ago when he was having dizzy spells and multiple falls. He saw Dr. Lind a week ago. He has been on lisinopril daily for high blood pressure. He does not know why he has been falling, but he has hit his head multiple times. He came into the ER hypotensive in [place] with a blood pressure of 81/44. The patient states he has also had diarrhea for the past 6 weeks, which has just stopped. He has had no typical angina. He has had what he thought was back pain in the upper back, which was like a tightness that would last a few minutes at a time and that he thought got better, mainly with stretching. He has not had any of that since admission. When he presented to [place], he had ST segment elevation inferiorly. There was also slurred QRS notch sometimes seen with early repolarization, but yet, there was also ST segment depression in aVL, V1 and V2. He has been placed on a heparin drip and the ST changes are 99% resolved. He is not having any chest pain now. Creatinine was 4.9 and is down to 3.42. PAST MEDICAL HISTORY: Includes hypertension, alcoholism. He drinks a bottle of wine every day. Multiple squamous cell skin cancers he has had removed. FAMILY HISTORY: Mother had CHF at age 80. Negative for heart disease in the father. He has 1 brother who has had brain cancer. 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 He is with 1 child. Smoking and drinking as described above. REVIEW OF SYSTEMS: Otherwise negative. PHYSICAL EXAMINATION: GENERAL: Well-developed, well-nourished man. He is alert and oriented. He appears calm. VITAL SIGNS: Charted. HEENT: Unremarkable. NECK: No JVD. No bruits. CHEST: Clear to auscultation, but diminished. CARDIAC: S1, S2. Regular rate and rhythm. A 1/6 systolic murmur. No gallops. ABDOMEN: Soft. EXTREMITIES: No clubbing, cyanosis or edema. VASCULAR: Right dorsalis pedis pulse is absent. Femoral pulses are strong. LABORATORY DATA: Initial EKG at 6:24 p.m. showed sinus rhythm with 1-[address] elevation inferiorly and 1-[address] depression in aVL, V1 and V2, consistent with acute inferior injury. On the EKG from 10:06 p.m., those changes have resolved. Labs are charted. Troponin is 0.26 and dropping. IMPRESSION:. Suspect the patient has had an aborted inferior ST-elevation myocardial infarction. He is on intravenous heparin. Electrocardiogram is improved. He is on aspirin. He is in significant renal failure. RECOMMENDATIONS: Continue IV heparin. I do not think we should take him to the veterinary laboratory technician presently because he is pain free and his BUN and creatinine are markedly elevated, placing him at very high risk for deterioration of renal function with contrast. A 2-D echo is showing a preserved LV function. Hold off on adding a beta shahnaz or nitrates at this point because his blood pressure has been low. We are trying to improve his perfusion pressure of the kidneys, so I am going to hold off on adding any additional antianginals. We will follow him with you. MD TINA Manzano/catracho , 02:36 PM , 02:46 PM
--- NOTE | 2017-12-29 16:34 | ECG ---
Date Performed: 12/28/2017 Time Performed: 18:24:59 PTAGE: 67 years EKG: Sinus rhythm WITH OCCASIONAL SUPRAVENTRICULAR PREMATURE COMPLEXES INFERIOR MYOCARDIAL INFARCTION ACUTE [place] NO PREVIOUS TRACING DOCTOR: Terry Olvera Interpretating Date/Time 12/29/2017 16:32:28
--- NOTE | 2017-12-29 16:35 | ECG ---
Date Performed: 12/28/2017 Time Performed: 22:06:52 PTAGE: 67 years EKG: Sinus rhythm . Septal ST-T changes are nonspecific When compared to previous tracing, it appears ST elevation has Resolved. Borderline ECG PREVIOUS TRACING : 12/28/2017 18.24 DOCTOR: Terry Olvera Interpretating Date/Time 12/29/2017 16:33:21
[2017-12-30 04:27] LABS: Hematocrit 32.9 % (39.0-51.0); Hemoglobin 11.4 gm/dL (13.0-17.0); Mean Corpuscular HGB Conc 34.7 % (32.0-36.0); Mean Corpuscular Hemoglobin 34.6 pg (27.0-34.0); Mean Corpuscular Volume 99.8 fL (80.0-100.0); Mean Platelet Volume 7.4 fL (7.0-11.0); Platelet Count 292 th/mm3 (150-450); Red Cell Distribution Width 12.9 % (11.6-17.2); White Blood Count 4.7 th/mm3 (4.0-11.0)
[2017-12-30 04:50] LABS: Alanine Aminotransferase 15 U/L (12-78); Albumin 2.6 g/dL (3.4-5.0); Alkaline Phosphatase 61 U/L (45-117); Anion Gap 12 meq/L (5-15); Aspartate Aminotransferase 12 U/L (15-37); Blood Urea Nitrogen 53 mg/dL (7-18); Calcium 7.5 mg/dL (8.5-10.1); Carbon Dioxide 20.4 meq/L (21.0-32.0); Chloride 104 meq/L (98-107); Glomerular Filtration Rate 37 mL/min (>89); Glucose,Random 85 mg/dL (74-106); Potassium 3.6 meq/L (3.5-5.1); Sodium 136 meq/L (136-145); Total Protein 5.3 g/dL (6.4-8.2)
[2017-12-30] MEDS: Sodium Chloride 0.45 % Inj 1,000 ML IV.CONT SCH ×3 (05:28→22:06)
[2017-12-30] MEDS: Chlorhexidine Gluconate 2% 1 Pack (2 Cloths) TOPICAL SCH (05:28)
[2017-12-30] MEDS: Heparin Drip 25,000 UNIT/250 ML BAG IV.CONT PRN (06:21)
--- NOTE | 2017-12-30 08:31 | P.PNCA ---
Subjective Interval history: no angina. no complaints Medications and Allergies Active Medications: Active Medications Acetaminophen (Tylenol) 650 mg PO Q6H PRN PRN Reason: PAIN 1-2 AND/OR FEVER >101F Al Hydroxide/Mg Hydroxide (Milk Of Magnesia Liq) 30 ml PO Q12H PRN PRN Reason: Mild Constipation Albuterol (Duoneb Neb (Prn)) 1 ampul NEB Q2HR NEB PRN PRN Reason: WHEEZING Aspirin (Aspirin Chew) 81 mg PO DAILY [facility] Last Admin: 12/29/17 09:58 Dose: 81 mg Bisacodyl (Dulcolax Supp) 10 mg RECTAL DAILY PRN PRN Reason: SEVERE CONSITIPATION Chlorhexidine Gluconate (Chlorhexidine 2% Cloth) 3 pack TOPICAL DAILY@0400 [facility] Stop: 01/03/18 03:59 Last Admin: 12/30/17 05:28 Dose: Not Given Chlorhexidine Gluconate (Chlorhexidine 2% Cloth) 3 pack TOPICAL DAILY@0400 PRN PRN Reason: Extra cloth needed Stop: 01/03/18 03:59 Famotidine (Pepcid Pf Inj) 10 mg IV.PUSH Q12HR [facility] Last Admin: 12/29/17 20:28 Dose: 10 mg Heparin Sodium/Dextrose (Heparin/D5w 25,000 U/250 Ml) 25,000 unit in 250 mls @ 0 mls/hr IV.CONT TITRATE PRN; Protocol PRN Reason: Per Protocol Last Admin: 12/30/17 06:21 Dose: 600 units/hr, 6 mls/hr Ceftriaxone Sodium 1,000 mg/ (Sodium Chloride) 100 mls @ 200 mls/hr IV.SIG Q24H [facility] Last Infusion: 12/30/17 06:15 Dose: Infused Sodium Chloride (1/2 Normal Saline Inj) 1,000 mls @ 84 mls/hr IV.CONT .[id number] [facility] Last Admin: 12/30/17 05:28 Dose: 84 mls/hr Lactulose (Lactulose Liq) 30 ml PO DAILY PRN PRN Reason: SEVERE CONSITIPATION Morphine Sulfate (Morphine Inj) 2 mg IV.PUSH Q2H PRN PRN Reason: PAIN SCALE 6 TO 10 Nitroglycerin (Nitro-Bid 2% Oint) 0.5 inch TOPICAL Q8HR [facility] Senna/Docusate Sodium (Park-Colace) 1 tab PO BID [facility] Last Admin: 12/29/17 20:40 Dose: Not Given Sennosides (Senokot) 17.2 mg PO Q12H PRN PRN Reason: Moderate Constipation Sodium Chloride (Ns Flush) 2 ml IV.FLUSH BID [facility] Last Admin: 12/29/17 20:28 Dose: 2 ml Sodium Chloride (Ns Flush) 2 ml IV.FLUSH PRN PRN PRN Reason: FLUSH AFTER USING IV ACCESS Allergies Allergy/AdvReac Type Severity Reaction Status Date / Time No Known Allergies Allergy Verified 12/28/17 17:38 Home Medications Medication Instructions Recorded Confirmed Type citalopram 20 mg PO DAILY 12/28/17 12/28/17 History diphenoxylate-atropine [Lomotil] 1 tab PO Q6-8H PRN 12/28/17 12/28/17 History lisinopril 10 mg PO DAILY 12/28/17 12/28/17 History metronidazole [Flagyl] 500 mg PO TID 12/28/17 12/28/17 History Physical Exam Vital signs: Vital Signs 12/29/17 11:00 12/29/17 11:15 12/29/17 15:00 Temperature 98.2 F Pulse Rate 89 89 85 Respiratory Rate 16 Blood Pressure 92/55 L Pulse Oximetry 98 12/29/17 15:40 12/29/17 19:00 12/29/17 23:00 Temperature 100.1 F H 99.4 F 98.2 F Pulse Rate 85 83 81 Respiratory Rate 16 18 16 Blood Pressure 129/84 110/59 L 99/58 L Pulse Oximetry 97 98 97 12/30/17 03:00 12/30/17 07:00 Temperature 99.1 F 99.0 F Pulse Rate 75 84 Respiratory Rate 18 18 Blood Pressure 106/56 L 117/62 Pulse Oximetry 97 97 Intake & Output 12/29/17 12/30/17 12/30/17 18:59 06:59 18:59 Intake Total 2155 / 2155 1086 / 1086 Output Total 675 / 675 750 / 750 Balance 1480 / 1480 336 / 336 Weight 74 kg Intake: IV 1595 / 1595 846 / 846 Heparin/D5W 25,000 U/250 mL 25, 163 / 163 87 / 87 000 unit In 250 ml @ Per Protocol IV.CONT TITRATE PRN Rx #:[id number] NS Inj 1,000 ML @ 84 mls/hr IV. 991 / 991 CONT .[id number] [facility] Rx#: [id number] 1/2 Normal Saline Inj 1,000 ML 341 / 341 659 / 659 @ 84 mls/hr IV.CONT .[id number] [facility] Rx#:[id number] Rocephin Inj 1,000 MG In NS Inj 100 / 100 100 / 100 100 ML @ 200 mls/hr IV.SIG Q24H [facility] Rx#:[id number] Oral 560 / 560 240 / 240 Output: Urine 750 / 750 Urine Amount (Catheter) 675 / 675 Indwelling Urethral Catheter 675 / 675 Other: # Voids 1 Date of Last Bowel Movement 12/29/17 12/30/17 12/30/17 # Bowel Movements 2 1 Narrative: Alert in NAD Neck no JVD Chest: moderate B/L rhonchi and wheezes CV S1S2 RRR without M/G Abd soft No edema - Urinary Catheter Management Indwelling Urethral Catheter Cath placed during this visit: yes Reason for continuing: Hourly intake/output Insertion date: 12/28/17 Insertion time: 22:15 Results 12/30/17 03:51 12/30/17 03:51 Cardiac Enzymes 12/28/17 12/28/17 12/28/17 Range/Units 17:45 17:45 19:40 AST 18 (15-37) U/L Troponin I 0.36 H 0.28 H (0.02-0.05) ng/mL 12/29/17 12/30/17 Range/Units 07:30 03:51 AST 13 L 12 L (15-37) U/L Troponin I 0.26 H (0.02-0.05) ng/mL Coagulation 12/28/17 12/29/17 12/29/17 Range/Units 17:45 07:30 10:40 PT 9.3 L (9.8-11.6) sec APTT 26.7 99.6 H* D 53.6 H D (24.3-30.1) sec 12/29/17 12/30/17 Range/Units 16:34 03:51 PT (9.8-11.6) sec APTT 47.9 H 45.8 H (24.3-30.1) sec CBC 12/28/17 12/28/17 12/29/17 Range/Units 17:45 19:40 07:30 WBC 7.4 7.1 5.9 (4.0-11.0) th/mm3 RBC 3.97 L 3.92 L 3.42 L (4.50-5.90) mil/mm3 Hgb 13.6 13.5 12.0 L (13.0-17.0) gm/dL Hct 39.2 38.5 L 34.0 L (39.0-51.0) % Plt Count 361 353 309 (150-450) th/mm3 Neut # (Auto) 5.2 5.2 4.6 (1.8-7.7) th/mm3 Lymph # (Auto) 1.2 1.0 0.7 L (1.0-4.8) th/mm3 [place] # (Auto) 0.8 0.7 0.5 (0.0-0.9) th/mm3 Eos # (Auto) 0.1 0.1 0.1 (0.0-0.4) th/mm3 Baso # (Auto) 0.1 0.1 0.0 (0.0-0.2) th/mm3 12/30/17 Range/Units 03:51 WBC 4.7 (4.0-11.0) th/mm3 RBC 3.30 L (4.50-5.90) mil/mm3 Hgb 11.4 L (13.0-17.0) gm/dL Hct 32.9 L (39.0-51.0) % Plt Count 292 (150-450) th/mm3 Neut # (Auto) (1.8-7.7) th/mm3 Lymph # (Auto) (1.0-4.8) th/mm3 [place] # (Auto) (0.0-0.9) th/mm3 Eos # (Auto) (0.0-0.4) th/mm3 Baso # (Auto) (0.0-0.2) th/mm3 Comprehensive Metabolic Panel 12/28/17 12/28/17 12/29/17 Range/Units 17:45 19:40 07:30 Sodium 122 L* 122 L* 132 L D (136-145) meq/L Potassium 3.9 3.8 3.8 (3.5-5.1) meq/L Chloride 91 L 91 L 101 D (98-107) meq/L Carbon Dioxide 16.8 L 15.6 L 16.7 L (21.0-32.0) meq/L BUN 79 H 80 H 71 H (7-18) mg/dL Creatinine 4.90 H 4.90 H 3.42 H (0.60-1.30) mg/dL Calcium 8.6 8.4 L 7.4 L* D (8.5-10.1) mg/dL AST 18 13 L (15-37) U/L ALT 23 15 (12-78) U/L Alkaline Phosphatase 89 67 (45-117) U/L Total Protein 7.3 5.5 L D (6.4-8.2) g/dL Albumin 4.0 2.8 L D (3.4-5.0) g/dL 12/30/17 Range/Units 03:51 Sodium 136 (136-145) meq/L Potassium 3.6 (3.5-5.1) meq/L Chloride 104 (98-107) meq/L Carbon Dioxide 20.4 L (21.0-32.0) meq/L BUN 53 H (7-18) mg/dL Creatinine 1.82 H (0.60-1.30) mg/dL Calcium 7.5 L (8.5-10.1) mg/dL AST 12 L (15-37) U/L ALT 15 (12-78) U/L Alkaline Phosphatase 61 (45-117) U/L Total Protein 5.3 L (6.4-8.2) g/dL Albumin 2.6 L (3.4-5.0) g/dL Intake and Output 12/29/17 12/30/17 12/30/17 22:59 06:59 14:59 Intake Total 1064 / 1064 1086 / 1086 Output Total 675 / 675 750 / 750 Balance 389 / 389 336 / 336 Intake: IV 504 / 504 846 / 846 Heparin/D5W 25,000 U/250 mL 25, 163 / 163 87 / 87 000 unit In 250 ml @ Per Protocol IV.CONT TITRATE PRN Rx #:[id number] Normal Saline Inj 1,000 ML 341 / 341 659 / 659 @ 84 mls/hr IV.CONT .[id number] [facility] Rx#:[id number] Rocephin Inj 1,000 MG In NS Inj 100 / 100 100 ML @ 200 mls/hr IV.SIG Q24H [facility] Rx#:[id number] Oral 560 / 560 240 / 240 Output: Urine 750 / 750 Urine Amount (Catheter) 675 / 675 Indwelling Urethral Catheter 675 / 675 Other: # Voids 1 Date of Last Bowel Movement 12/29/17 12/30/17 12/30/17 # Bowel Movements 2 1 Weight 74 kg - Imaging and Cardiology Imaging: Impressions Cervical Spine CT 12/28/17 17:43 CONCLUSION: 1. Negative trauma CT. Head CT 12/28/17 17:43 CONCLUSION: 1. Negative trauma CT. . Abdomen/Bladder Ultrasound 12/29/17 00:00 CONCLUSION: 1. Kidneys are unremarkable. Aponte catheter in place Assessment and Plan - Assessment (1) ST elevation myocardial infarction (STEMI) of inferior wall, initial episode of care Code(s): I21.19 - ST elevation (STEMI) myocardial infarction involving other coronary artery of inferior wall Status: Acute Plan: Reperfused with heparin. Stable at present. He needs cath, high likelihood of needing revasc. Schedule 714 - hopefully renal function cont. to improve (2) COPD (chronic obstructive pulmonary disease) Code(s): J44.9 - Chronic obstructive pulmonary disease, unspecified Status: Acute (3) Acute renal failure Code(s): N17.9 - Acute kidney failure, unspecified Status: Acute (3) Acute renal failure Qualifiers: Acute renal failure type: unspecified Qualified Code(s): N17.9 - Acute kidney failure, unspecified
[2017-12-30] MEDS: Famotidine PF Inj 20 MG/2 ML Vial IV.PUSH SCH ×2 (08:52→21:33)
[2017-12-30] MEDS: Senna/Docusate Sodium 8.6/50 MG Tablet PO SCH ×2 (08:53→21:39)
--- NOTE | 2017-12-30 09:50 | P.PNCC ---
Subjective Subjective Remarks/Hospital Course: 12/28: This is a 67-year-old male with a history of recently diagnosed hypertension, alcohol dependence who presented to the emergency department at [facility] for evaluation of dizziness and weakness. Not feeling well over the last several days, had been kami weak and dizzy with recurrent falls. He denies any chest pain. He had been recently started on lisinopril for hypertension. He also gives a history of heavy alcohol use more than 6 beers a day, last drink was 2 days ago Tuesday. Patient was hypotensive in the ED blood pressure 81/44. He received 2 L normal saline boluses. Lab work showed sodium was 122 BUN 79 creatinine 4.9, troponin was 0.36. Patient was essentially anuric since arrival to the ED. EKG showed ST elevations in the inferior leads however patient completely denied chest pain. Dr. Cardoso was contacted by Dr. Harrell who requested patient to be transferred to the [facility]. Once creatinine improves and patient stabilizes he will consider cardiac catheterization. I evaluated the patient in the CVICU. He appears critically ill dehydrated. He still has not made any urine. I have requested Aponte to be inserted will give additional 1 L fluid bolus. On further history he completely CV denies chest pain. Even though he has ST elevations in the inferior leads his initial troponin was 0.36 and repeat troponin is trending down to 0.28. I will check a repeat EKG but I doubt at this time he meets STEMI criteria. CT of the head and neck had been negative. I have ordered aspirin and IV heparin. Cardiology and nephrology consults are pending at this time. 2 D Echo also ordered. 12/29: Resting comfortably in bed. Denies any chest pain or shortness of breath. Not in any acute distress. 12/30: Resting comfortably in bed, denies any chest pain or shortness of breath. BUN/creatinine improving. Remains on heparin for anticoagulation for ST elevations in inferior leads which have now resolved. Cardiology following and cardiac cath planned for Tuesday. Objective Vital Signs / I&O: Vital Signs 12/29/17 11:00 12/29/17 11:15 12/29/17 15:00 Temperature 98.2 F Pulse Rate 89 89 85 Respiratory Rate 16 Blood Pressure 92/55 L Pulse Oximetry 98 12/29/17 15:40 12/29/17 19:00 12/29/17 23:00 Temperature 100.1 F H 99.4 F 98.2 F Pulse Rate 85 83 81 Respiratory Rate 16 18 16 Blood Pressure 129/84 110/59 L 99/58 L Pulse Oximetry 97 98 97 12/30/17 03:00 12/30/17 07:00 Temperature 99.1 F 99.0 F Pulse Rate 75 84 Respiratory Rate 18 18 Blood Pressure 106/56 L 117/62 Pulse Oximetry 97 97 Intake & Output 12/29/17 12/30/17 12/30/17 18:59 06:59 18:59 Intake Total 2155 / 2155 1086 / 1086 Output Total 675 / 675 750 / 750 Balance 1480 / 1480 336 / 336 Weight 74 kg Intake: IV 1595 / 1595 846 / 846 Heparin/D5W 25,000 U/250 mL 25, 163 / 163 87 / 87 000 unit In 250 ml @ Per Protocol IV.CONT TITRATE PRN Rx #:[id number] NS Inj 1,000 ML @ 84 mls/hr IV. 991 / 991 CONT .[id number] [facility] Rx#: [id number] 1/2 Normal Saline Inj 1,000 ML 341 / 341 659 / 659 @ 84 mls/hr IV.CONT .[id number] [facility] Rx#:[id number] Rocephin Inj 1,000 MG In NS Inj 100 / 100 100 / 100 100 ML @ 200 mls/hr IV.SIG Q24H [facility] Rx#:[id number] Oral 560 / 560 240 / 240 Output: Urine 750 / 750 Urine Amount (Catheter) 675 / 675 Indwelling Urethral Catheter 675 / 675 Other: # Voids 1 Date of Last Bowel Movement 12/29/17 12/30/17 12/30/17 # Bowel Movements 2 1 Result Diagrams: 12/30/17 03:51 12/30/17 03:51 Objective Remarks: GENERAL: Ill-appearing male laying in bed in no acute distress. SKIN: warm/dry. HEAD: Abrasion on the forehead. Normocephalic. EYES: No scleral icterus. No injection or drainage. ENT: No nasal bleeding or discharge. Mucous membranes moist NECK: Trachea midline. Supple. CARDIOVASCULAR: Regular rate and rhythm. No murmur appreciated. RESPIRATORY: No accessory muscle use. Clear to auscultation. Breath sounds equal bilaterally. GASTROINTESTINAL: Abdomen soft, non-tender, nondistended. Scaphoid. MUSCULOSKELETAL: No obvious deformities. No clubbing. No cyanosis. No edema. NEUROLOGICAL: Awake and alert. No obvious cranial nerve deficits. Motor grossly within normal limits. Assessment and Plan - Assessment and Plan Plan: NEURO: Alcohol dependence -Supplement multivitamin thiamine -Watch closely for alcohol withdrawal, no indication for CIWA protocol at this time RESP: -DuoNeb every 6 hours as needed CV: Hypotension Elevated troponin ST elevation in the inferior leads/possible STEMI -Hypotension most likely secondary to dehydration -Given total 3 L IV fluids on admission. Continue maintenance IV fluids -Patient denies chest pain troponin initially 0.3 6 repeat 0.28 -EKG with inferior wall ST elevations with suspected STEMI -Cardiology Dr. Bradley following and planning cardiac cath on Tuesday 01/02 once creatinine improves -Placed on IV heparin and aspirin, beta-blockers not started due to hypotension on admission. -2D echo with normal LV function GI: -Renal diet, IV famotidine : Acute kidney failure -Monitor renal function closely. Place Aponte catheter. -Renal ultrasound with no obstruction, nephrology consult noted -Check UA complete -Renal failure secondary to dehydration and ATN ID: -No indication for antibiotics at this time HEME: -Monitor CBC, coags ENDO: Hyponatremia -Continue IV hydration with normal saline, target slow correction of sodium PROPH: -Bilateral lower extremity SCDs. IV heparin, IV famotidine LINES: -Utilize peripheral IVs, central line if needed Consult and transfer to hospitalist service for further medical management, critical care will be signing off, please reconsult if needed.
--- NOTE | 2017-12-30 12:46 | P.PNNP ---
Subjective Interval history: Patient was sitting up in bed, had no complaints. Patient's renal function has improved. Physical Exam Vital signs: Vital Signs 12/29/17 15:00 12/29/17 15:40 12/29/17 19:00 Temperature 100.1 F H 99.4 F Pulse Rate 85 85 83 Respiratory Rate 16 18 Blood Pressure 129/84 110/59 L Pulse Oximetry 97 98 12/29/17 23:00 12/30/17 03:00 12/30/17 07:00 Temperature 98.2 F 99.1 F 99.0 F Pulse Rate 81 75 84 Respiratory Rate 16 18 18 Blood Pressure 99/58 L 106/56 L 117/62 Pulse Oximetry 97 97 97 12/30/17 11:00 Temperature 98.9 F Pulse Rate 80 Respiratory Rate 18 Blood Pressure 122/71 Pulse Oximetry 98 Intake & Output 12/29/17 12/30/17 12/30/17 18:59 06:59 18:59 Intake Total 2155 / 2155 1086 / 1086 Output Total 675 / 675 750 / 750 Balance 1480 / 1480 336 / 336 Weight 74 kg Intake: IV 1595 / 1595 846 / 846 Heparin/D5W 25,000 U/250 mL 25, 163 / 163 87 / 87 000 unit In 250 ml @ Per Protocol IV.CONT TITRATE PRN Rx #:[id number] NS Inj 1,000 ML @ 84 mls/hr IV. 991 / 991 CONT .[id number] [facility] Rx#: [id number] 1/2 Normal Saline Inj 1,000 ML 341 / 341 659 / 659 @ 84 mls/hr IV.CONT .[id number] [facility] Rx#:[id number] Rocephin Inj 1,000 MG In NS Inj 100 / 100 100 / 100 100 ML @ 200 mls/hr IV.SIG Q24H [facility] Rx#:[id number] Oral 560 / 560 240 / 240 Output: Urine 750 / 750 Urine Amount (Catheter) 675 / 675 Indwelling Urethral Catheter 675 / 675 Other: # Voids 1 Date of Last Bowel Movement 12/29/17 12/30/17 12/30/17 # Bowel Movements 2 1 - Constitutional no acute distress - Routine HEENT Exam Head: Present: normocephalic Eye: Present: EOMI, PERRL ENT: Present: mucous membranes moist - Routine Neck Exam Present: supple, full ROM - Routine Respiratory Exam Present: wheezes. Absent: accessory muscle use - Routine Cardiovascular Exam Present: RRR, S1, S2 - Routine Abdominal Exam Present: soft - Routine Extremities Exam Absent: edema - Urinary Catheter Management Indwelling Urethral Catheter Cath placed during this visit: yes Urethral indwelling: Yes Reason for continuing: Hourly intake/output Insertion date: 12/28/17 Insertion time: 22:15 Assessment and Plan - Assessment (1) Acute renal failure Code(s): N17.9 - Acute kidney failure, unspecified Status: Acute Qualifiers: Acute renal failure type: unspecified Qualified Code(s): N17.9 - Acute kidney failure, unspecified Plan: Likely due to pre-renal azotemia. He has been having diarrhea for several weeks , also admits that he had reduced oral fluid intake. In addition, he was started on Lisinopril 3 weeks ago which could have dropped his BP more than what was desired. At this time, continue IVF. Renal function appears to have improved. No indication for dialysis at this time. Avoid NSAIDs and other nephrotoxic agents. Renal US done 12/29/17 and was unremarkable. (2) Hyponatremia Code(s): E87.1 - Hypo-osmolality and hyponatremia Status: Acute Plan: Could be hypovolemic hyponatremia. It has improved. IVF was recently changed to 1/2NS (3) Acute ST elevation myocardial infarction (STEMI) Code(s): I21.3 - ST elevation (STEMI) myocardial infarction of unspecified site Status: Acute Qualifiers: Involved coronary artery: unspecified coronary artery Qualified Code(s): I21.3 - ST elevation (STEMI) myocardial infarction of unspecified site Plan: Troponin is mildly elevated. Cardiology on the case.
[2017-12-31] MEDS: Chlorhexidine Gluconate 2% 1 Pack (2 Cloths) TOPICAL SCH (03:01)
[2017-12-31 07:35] LABS: Eos # (Auto) 0.1 th/mm3 (0.0-0.4); Eos % (Auto) 3.6 % (0.0-4.0); Hematocrit 29.9 % (39.0-51.0); Hemoglobin 10.5 gm/dL (13.0-17.0); Lymph # (Auto) 1.1 th/mm3 (1.0-4.8); Lymph % (Auto) 26.8 % (9.0-44.0); Mean Corpuscular HGB Conc 35.2 % (32.0-36.0); Mean Corpuscular Hemoglobin 35.3 pg (27.0-34.0); Mean Corpuscular Volume 100.2 fL (80.0-100.0); Mono # (Auto) 0.4 th/mm3 (0.0-0.9); Mono % (Auto) 10.8 % (0.0-8.0); Neut # (Auto) 2.3 th/mm3 (1.8-7.7); Neut % (Auto) 57.8 % (16.0-70.0); Platelet Count 276 th/mm3 (150-450); Red Blood Count 2.98 mil/mm3 (4.50-5.90); Red Cell Distribution Width 13.2 % (11.6-17.2)
[2017-12-31 08:09] LABS: Alanine Aminotransferase 15 U/L (12-78); Albumin 2.5 g/dL (3.4-5.0); Alkaline Phosphatase 54 U/L (45-117); Anion Gap 8 meq/L (5-15); Aspartate Aminotransferase 14 U/L (15-37); Blood Urea Nitrogen 29 mg/dL (7-18); Calcium 7.5 mg/dL (8.5-10.1); Carbon Dioxide 22.8 meq/L (21.0-32.0); Chloride 108 meq/L (98-107); Glomerular Filtration Rate 69 mL/min (>89); Glucose,Random 83 mg/dL (74-106); Potassium 4.1 meq/L (3.5-5.1); Sodium 139 meq/L (136-145); Total Protein 5.2 g/dL (6.4-8.2)
--- NOTE | 2017-12-31 10:25 | P.PN ---
Subjective Interval history: Pt says he feels great, no complaints. Physical Exam Vital signs: Vital Signs 12/30/17 11:00 12/30/17 19:00 12/30/17 23:00 Temperature 98.9 F 98.7 F 98.2 F Pulse Rate 80 79 82 Respiratory Rate 18 18 18 Blood Pressure 122/71 122/65 137/74 Pulse Oximetry 98 98 97 12/31/17 03:00 12/31/17 08:28 Temperature 98.2 F 98.9 F Pulse Rate 80 83 Respiratory Rate 18 20 Blood Pressure 128/73 140/85 Pulse Oximetry 100 97 Intake & Output 12/30/17 12/31/17 12/31/17 18:59 06:59 18:59 Intake Total 1100 / 1100 2040 / 2040 Output Total 450 / 450 525 / 525 Balance 650 / 650 1515 / 1515 Weight 74.4 kg Intake: IV 1100 / 1100 1/2 Normal Saline Inj 1,000 ML 1000 / 1000 @ 42 mls/hr IV.CONT .[id number] [facility] Rx#:[id number] Rocephin Inj 1,000 MG In NS Inj 100 / 100 100 ML @ 200 mls/hr IV.SIG Q24H [facility] Rx#:[id number] Oral 1100 / 1100 240 / 240 Other 700 / 700 Output: Urine Amount (Catheter) 450 / 450 525 / 525 Indwelling Urethral Catheter 450 / 450 525 / 525 Other: Other Intake Source Saline Solution Date of Last Bowel Movement 12/30/17 12/30/17 # Bowel Movements 2 0 - Constitutional average body habitus - Routine HEENT Exam Head: Present: normocephalic Eye: Present: EOMI ENT: Present: mucous membranes moist - Routine Neck Exam Present: supple. Absent: JVD - Routine Respiratory Exam Absent: accessory muscle use - Routine Cardiovascular Exam Present: RRR. Absent: murmur - Routine Abdominal Exam Present: soft - Routine Extremities Exam Absent: edema - Urinary Catheter Management Indwelling Urethral Catheter Cath placed during this visit: yes Urethral indwelling: Yes Reason for continuing: Hourly intake/output Insertion date: 12/28/17 Insertion time: 22:15 Results - Labs CBC & Chem 7: 12/31/17 05:48 12/31/17 05:48 Laboratory Results - last 24 hr 12/31/17 12/31/17 12/31/17 05:48 05:48 05:48 WBC 4.0 RBC 2.98 L Hgb 10.5 L Hct 29.9 L MCV 100.2 H MCH 35.3 H MCHC 35.2 RDW 13.2 Plt Count 276 MPV 8.0 Neut % (Auto) 57.8 Lymph % (Auto) 26.8 [place] % (Auto) 10.8 H Eos % (Auto) 3.6 Baso % (Auto) 1.0 Neut # (Auto) 2.3 Lymph # (Auto) 1.1 [place] # (Auto) 0.4 Eos # (Auto) 0.1 Baso # (Auto) 0.0 WBC Differential . Differential Comment Auto diff final APTT 45.5 H Sodium 139 Potassium 4.1 Chloride 108 H Carbon Dioxide 22.8 Anion Gap 8 BUN 29 H Creatinine 1.07 Estimated GFR 69 L Random Glucose 83 Calcium 7.5 L Total Bilirubin 0.2 AST 14 L ALT 15 Alkaline Phosphatase 54 Total Protein 5.2 L Albumin 2.5 L Assessment and Plan - Assessment (1) ST elevation myocardial infarction (STEMI) of inferior wall, initial episode of care Code(s): I21.19 - ST elevation (STEMI) myocardial infarction involving other coronary artery of inferior wall Status: Acute Plan: Dr. Bradley plans on taking the patient to the [facility]ophysical laboratory chief Tuesday (2) COPD (chronic obstructive pulmonary disease) Code(s): J44.9 - Chronic obstructive pulmonary disease, unspecified Status: Acute (3) Acute renal failure Code(s): N17.9 - Acute kidney failure, unspecified Status: Acute Plan: Improved - Plan Doing well, continue current mgt (3) Acute renal failure Qualifiers: Acute renal failure type: unspecified Qualified Code(s): N17.9 - Acute kidney failure, unspecified
[2017-12-31] MEDS: Famotidine PF Inj 20 MG/2 ML Vial IV.PUSH SCH ×2 (10:28→20:57)
[2017-12-31] MEDS: Senna/Docusate Sodium 8.6/50 MG Tablet PO SCH ×2 (10:29→21:08)
--- NOTE | 2017-12-31 13:00 | P.PNIM ---
Subjective Interval history: Patient is in no acute distress this morning. He denies any chest pain, no dizziness. Physical Exam Vital signs: Vital Signs 12/30/17 19:00 12/30/17 23:00 12/31/17 03:00 Temperature 98.7 F 98.2 F 98.2 F Pulse Rate 79 82 80 Respiratory Rate 18 18 18 Blood Pressure 122/65 137/74 128/73 Pulse Oximetry 98 97 100 12/31/17 07:00 12/31/17 08:28 12/31/17 12:00 Temperature 98.9 F Pulse Rate 79 83 77 Respiratory Rate 20 Blood Pressure 140/85 Pulse Oximetry 97 12/31/17 12:20 Temperature 98.8 F Pulse Rate 69 Respiratory Rate 16 Blood Pressure 156/88 H Pulse Oximetry 100 Intake & Output 12/30/17 12/31/17 12/31/17 18:59 06:59 18:59 Intake Total 1100 / 1100 2040 / 2040 Output Total 450 / 450 525 / 525 Balance 650 / 650 1515 / 1515 Weight 74.4 kg Intake: IV 1100 / 1100 1/2 Normal Saline Inj 1,000 ML 1000 / 1000 @ 42 mls/hr IV.CONT .[id number] [facility] Rx#:[id number] Rocephin Inj 1,000 MG In NS Inj 100 / 100 100 ML @ 200 mls/hr IV.SIG Q24H [facility] Rx#:[id number] Oral 1100 / 1100 240 / 240 Other 700 / 700 Output: Urine Amount (Catheter) 450 / 450 525 / 525 Indwelling Urethral Catheter 450 / 450 525 / 525 Other: Other Intake Source Saline Solution Date of Last Bowel Movement 12/30/17 12/30/17 # Bowel Movements 2 0 Narrative: General patient in no acute distress, no chest pain HEENT extraocular movements are intact, poor dentition, bandage over the patient 's left forehead Cardiovascular S1-S2 audible, RRR, no murmurs rubs or gallops Respiratory clear to auscultation bilaterally Abdomen soft, nontender, nondistended, normal bowel sounds Extremities no edema 2+ distal pulses in bilateral upper and lower extremities Neuro cranial nerves II through XII intact - Urinary Catheter Management Indwelling Urethral Catheter Cath placed during this visit: yes Urethral indwelling: Yes Reason for continuing: Hourly intake/output Insertion date: 10/31/18 Insertion time: 22:15 Results - Labs CBC & Chem 7: 12/31/17 05:48 12/31/17 05:48 Laboratory Results - last 24 hr 12/31/17 12/31/17 12/31/17 05:48 05:48 05:48 WBC 4.0 RBC 2.98 L Hgb 10.5 L Hct 29.9 L MCV 100.2 H MCH 35.3 H MCHC 35.2 RDW 13.2 Plt Count 276 MPV 8.0 Neut % (Auto) 57.8 Lymph % (Auto) 26.8 [place] % (Auto) 10.8 H Eos % (Auto) 3.6 Baso % (Auto) 1.0 Neut # (Auto) 2.3 Lymph # (Auto) 1.1 [place] # (Auto) 0.4 Eos # (Auto) 0.1 Baso # (Auto) 0.0 WBC Differential . Differential Comment Auto diff final APTT 45.5 H Sodium 139 Potassium 4.1 Chloride 108 H Carbon Dioxide 22.8 Anion Gap 8 BUN 29 H Creatinine 1.07 Estimated GFR 69 L Random Glucose 83 Calcium 7.5 L Total Bilirubin 0.2 AST 14 L ALT 15 Alkaline Phosphatase 54 Total Protein 5.2 L Albumin 2.5 L Assessment and Plan - Plan This patient is a 67-year-old male with a diagnosis of hypertension and alcohol dependence. He presents to the emergency department dehydrated with dizziness and weakness. The patient was found to have an elevated serum creatinine and troponin was elevated at 0.36. EKG did show slight ST segment elevation in the inferior leads. Patient was admitted under the critical care service and now has been transferred to the hospitalist service. 1. ST segment elevation in the inferior leads/possible STEMI 2. Acute kidney injury, prerenal improving The patient initially presented hypotensive due to dehydration and needed aggressive IV fluid hydration. Troponin was elevated and peaked at 0.36, repeat 0.28. EKG showed ST segment elevations in the inferior leads. Cardiology is following and is planning for a cardiac catheterization on Tuesday01/02/2018 after the patient's kidney function improves. Current serum creatinine is 1.0. Plan will be for cardiac catheterization on Tuesday. Continue IV fluids, continue aspirin, heparin drip, beta-shahnaz will be started today as the patient's blood pressure is in the 150s systolic. Start statin DVT prophylaxis, patient is currently on heparin drip.
[2017-12-31] MEDS: Metoprolol Tartrate 25 MG Tablet PO SCH ×2 (14:53→20:57)
[2017-12-31] MEDS: Heparin Drip 25,000 UNIT/250 ML BAG IV.CONT PRN (21:04)
[2017-12-31] MEDS: Sodium Chloride 0.45 % Inj 1,000 ML IV.CONT SCH (22:44)
[2018-01-01] MEDS: Chlorhexidine Gluconate 2% 1 Pack (2 Cloths) TOPICAL SCH (04:19)
[2018-01-01] MEDS: Sodium Chloride 0.45 % Inj 1,000 ML IV.CONT SCH ×2 (05:26→21:47)
[2018-01-01] MEDS: Famotidine PF Inj 20 MG/2 ML Vial IV.PUSH SCH ×2 (09:16→21:26)
[2018-01-01] MEDS: Metoprolol Tartrate 25 MG Tablet PO SCH ×2 (09:17→21:26)
[2018-01-01 09:23] LABS: Baso % (Auto) 0.6 % (0.0-2.0); Eos # (Auto) 0.2 th/mm3 (0.0-0.4); Eos % (Auto) 3.5 % (0.0-4.0); Hematocrit 30.5 % (39.0-51.0); Hemoglobin 10.7 gm/dL (13.0-17.0); Lymph % (Auto) 20.6 % (9.0-44.0); Mean Corpuscular HGB Conc 35.1 % (32.0-36.0); Mean Corpuscular Volume 99.8 fL (80.0-100.0); Mean Platelet Volume 8.2 fL (7.0-11.0); Mono # (Auto) 0.5 th/mm3 (0.0-0.9); Neut % (Auto) 65.3 % (16.0-70.0); Platelet Count 284 th/mm3 (150-450); Red Blood Count 3.06 mil/mm3 (4.50-5.90); Red Cell Distribution Width 13.1 % (11.6-17.2); White Blood Count 4.7 th/mm3 (4.0-11.0)
[2018-01-01 09:47] LABS: Alanine Aminotransferase 14 U/L (12-78); Albumin 2.7 g/dL (3.4-5.0); Anion Gap 10 meq/L (5-15); Aspartate Aminotransferase 14 U/L (15-37); Blood Urea Nitrogen 16 mg/dL (7-18); Calcium 7.8 mg/dL (8.5-10.1); Carbon Dioxide 24.4 meq/L (21.0-32.0); Chloride 106 meq/L (98-107); Glomerular Filtration Rate 84 mL/min (>89); Glucose,Random 89 mg/dL (74-106); Potassium 3.8 meq/L (3.5-5.1); Sodium 140 meq/L (136-145)
[2018-01-01 09:52] LABS: Alkaline Phosphatase 56 U/L (45-117); Total Protein 5.5 g/dL (6.4-8.2)
--- NOTE | 2018-01-01 10:18 | P.PN ---
Subjective Interval history: Pt doing well, no complaints. Physical Exam Vital signs: Vital Signs 12/31/17 12:00 12/31/17 12:20 12/31/17 15:00 Temperature 98.8 F Pulse Rate 77 69 73 Respiratory Rate 16 Blood Pressure 156/88 H Pulse Oximetry 100 12/31/17 15:58 12/31/17 19:00 12/31/17 23:00 Temperature 98.7 F 98.6 F 98.5 F Pulse Rate 70 80 70 Respiratory Rate 16 18 18 Blood Pressure 121/76 140/85 116/60 Pulse Oximetry 98 99 99 01/01/18 03:00 01/01/18 07:17 01/01/18 08:10 Temperature 98.5 F 99.1 F Pulse Rate 71 80 72 Respiratory Rate 20 20 Blood Pressure 127/69 154/85 H Pulse Oximetry 98 99 Intake & Output 12/31/17 01/01/18 01/01/18 19:59 06:59 18:59 Intake Total Output Total Balance Weight Intake: IV Heparin/D5W 25,000 U/250 mL 25, 000 unit In 250 ml @ Per Protocol IV.CONT TITRATE PRN Rx #:[id number] 1/2 Normal Saline Inj 1,000 ML @ 42 mls/hr IV.CONT .[id number] [facility] Rx#:[id number] Rocephin Inj 1,000 MG In NS Inj 100 ML @ 200 mls/hr IV.SIG Q24H [facility] Rx#:[id number] Oral Output: Urine Urine Amount (Catheter) Indwelling Urethral Catheter - Constitutional no acute distress - Routine HEENT Exam Head: Present: normocephalic Eye: Present: EOMI ENT: Present: mucous membranes moist - Routine Neck Exam Present: supple. Absent: JVD - Routine Respiratory Exam Present: CTA bilaterally. Absent: accessory muscle use - Routine Cardiovascular Exam Present: RRR. Absent: murmur - Routine Abdominal Exam Present: soft - Routine Extremities Exam Absent: edema - Urinary Catheter Management Indwelling Urethral Catheter Cath placed during this visit: yes Urethral indwelling: Yes Reason for continuing: Acute urinary retention Insertion date: 12/28/17 Insertion time: 22:15 Results - Labs CBC & Chem 7: 01/01/18 07:14 01/01/18 07:14 Laboratory Results - last 24 hr 01/01/18 01/01/1818 07:14 07:14 07:14 WBC 4.7 RBC 3.06 L Hgb 10.7 L Hct 30.5 L MCV 99.8 MCH 35.0 H MCHC 35.1 RDW 13.1 Plt Count 284 MPV 8.2 Neut % (Auto) 65.3 Lymph % (Auto) 20.6 [place] % (Auto) 10.0 H Eos % (Auto) 3.5 Baso % (Auto) 0.6 Neut # (Auto) 3.0 Lymph # (Auto) 1.0 [place] # (Auto) 0.5 Eos # (Auto) 0.2 Baso # (Auto) 0.0 WBC Differential . Differential Comment Auto diff final APTT 39.7 H Sodium 140 Potassium 3.8 Chloride 106 Carbon Dioxide 24.4 Anion Gap 10 BUN 16 Creatinine 0.90 Estimated GFR 84 L Random Glucose 89 Calcium 7.8 L Total Bilirubin 0.2 AST 14 L ALT 14 Alkaline Phosphatase 56 Total Protein 5.5 L Albumin 2.7 L Assessment and Plan - Assessment (1) ST elevation myocardial infarction (STEMI) of inferior wall, initial episode of care Code(s): I21.19 - ST elevation (STEMI) myocardial infarction involving other coronary artery of inferior wall Status: Acute Plan: Dr. Bradley plans on taking the patient to the [facility] Tuesday (2) COPD (chronic obstructive pulmonary disease) Code(s): J44.9 - Chronic obstructive pulmonary disease, unspecified Status: Acute (3) Acute renal failure Code(s): N17.9 - Acute kidney failure, unspecified Status: Acute Plan: Improved - Plan Doing well, continue current mgt (3) Acute renal failure Qualifiers: Acute renal failure type: unspecified Qualified Code(s): N17.9 - Acute kidney failure, unspecified
[2018-01-01] MEDS: Senna/Docusate Sodium 8.6/50 MG Tablet PO SCH ×2 (12:04→21:26)
--- NOTE | 2018-01-01 15:19 | P.PNIM ---
Subjective Interval history: Patient says he feels fine today. No complaints of chest pain or palpitations. Physical Exam Vital signs: Vital Signs 12/31/17 19:00 12/31/17 23:00 01/01/18 03:00 Temperature 98.6 F 98.5 F 98.5 F Pulse Rate 80 70 71 Respiratory Rate 18 18 20 Blood Pressure 140/85 116/60 127/69 Pulse Oximetry 99 99 98 01/01/18 07:17 01/01/18 08:10 01/01/18 12:06 Temperature 99.1 F Pulse Rate 80 72 70 Respiratory Rate 20 Blood Pressure 154/85 H Pulse Oximetry 99 01/01/18 12:47 Temperature 99.6 F Pulse Rate 96 H Respiratory Rate 18 Blood Pressure 164/70 H Pulse Oximetry 98 Intake & Output 12/31/17 01/01/18 01/01/18 19:59 06:59 18:59 Intake Total Output Total Balance Weight Intake: IV Heparin/D5W 25,000 U/250 mL 25, 000 unit In 250 ml @ Per Protocol IV.CONT TITRATE PRN Rx #:[id number] 1/2 Normal Saline Inj 1,000 ML @ 42 mls/hr IV.CONT .[id number] [facility] Rx#:[id number] Rocephin Inj 1,000 MG In NS Inj 100 ML @ 200 mls/hr IV.SIG Q24H [facility] Rx#:[id number] Oral Output: Urine Urine Amount (Catheter) Indwelling Urethral Catheter Narrative: General patient in no acute distress, no chest pain HEENT extraocular movements are intact, poor dentition, bandage over the patient 's left forehead Cardiovascular S1-S2 audible, RRR, no murmurs rubs or gallops Respiratory clear to auscultation bilaterally Abdomen soft, nontender, nondistended, normal bowel sounds Extremities no edema 2+ distal pulses in bilateral upper and lower extremities Neuro cranial nerves II through XII intact - Urinary Catheter Management Indwelling Urethral Catheter Cath placed during this visit: yes Urethral indwelling: Yes Reason for continuing: Acute urinary retention Insertion date: 12/28/17 Insertion time: 22:15 Results - Labs CBC & Chem 7: 01/01/18 07:14 01/01/18 07:14 Laboratory Results - last 24 hr 01/01/18 01/01/18 01/01/18 07:14 07:14 07:14 WBC 4.7 RBC 3.06 L Hgb 10.7 L Hct 30.5 L MCV 99.8 MCH 35.0 H MCHC 35.1 RDW 13.1 Plt Count 284 MPV 8.2 Neut % (Auto) 65.3 Lymph % (Auto) 20.6 [place] % (Auto) 10.0 H Eos % (Auto) 3.5 Baso % (Auto) 0.6 Neut # (Auto) 3.0 Lymph # (Auto) 1.0 [place] # (Auto) 0.5 Eos # (Auto) 0.2 Baso # (Auto) 0.0 WBC Differential . Differential Comment Auto diff final APTT 39.7 H Sodium 140 Potassium 3.8 Chloride 106 Carbon Dioxide 24.4 Anion Gap 10 BUN 16 Creatinine 0.90 Estimated GFR 84 L Random Glucose 89 Calcium 7.8 L Total Bilirubin 0.2 AST 14 L ALT 14 Alkaline Phosphatase 56 Total Protein 5.5 L Albumin 2.7 L Assessment and Plan - Plan This patient is a 67-year-old male with a diagnosis of hypertension and alcohol dependence. He presents to the emergency department dehydrated with dizziness and weakness. The patient was found to have an elevated serum creatinine and troponin was elevated at 0.36. EKG did show slight ST segment elevation in the inferior leads. Patient was admitted under the critical care service and now has been transferred to the hospitalist service. 1. ST segment elevation in the inferior leads/possible STEMI 2. Acute kidney injury, prerenal resolved 3. Hypertension No complaints of chest pain, no palpitations. Continue current management with aspirin, beta-shahnaz, heparin drip, statin. Acute kidney injury has resolved. Plan is for cardiac catheterization tomorrow. Cardio is following, will follow up with cardiology's recommendations after the cardiac catheterization. Patient will be started on Norvasc 5 mg p.o. daily for high blood pressure. The patient initially presented hypotensive due to dehydration and needed aggressive IV fluid hydration. Troponin was elevated and peaked at 0.36, repeat 0.28. EKG showed ST segment elevations in the inferior leads. DVT prophylaxis, patient is currently on heparin drip.
[2018-01-01] MEDS: amLODIPine 5 MG Tablet PO SCH (17:19)
[2018-01-01] MEDS ORDERED: diazePAM 5 MG Tablet PO SCH (20:15)
--- NOTE | 2018-01-01 22:30 | ECG ---
Date Performed: 01/01/2018 Time Performed: 10:08:04 PTAGE: 67 years EKG: Sinus rhythm PREVIOUS TRACING : 12/28/2017 22.06 Compared to previous tracing, septal changes no longe r noted DOCTOR: Julian Frias Interpretating Date/Time 01/01/2018 22:30:10
[2018-01-02] MEDS ORDERED: Sod Chloride 0.9% Inj 1,000 ML IV.CONT SCH ×2 (01:30→21:00)
[2018-01-02] MEDS: Chlorhexidine Gluconate 2% 1 Pack (2 Cloths) TOPICAL SCH (03:31)
[2018-01-02] MEDS ORDERED: Heparin/NS PF Inj 1,500 ML ONE ×2 (07:10→07:16)
[2018-01-02] MEDS ORDERED: fentaNYL Citrate Inj 100 MCG/2 ML Ampul ONE (07:16)
[2018-01-02] MEDS ORDERED: Lidocaine PF 1% Inj 30 ML Vial ONE (07:16)
[2018-01-02] MEDS ORDERED: Nitroglycerin Drip Premix 50 MG/250 ML BOTTLE ONE (07:51)
[2018-01-02] MEDS ORDERED: Misc Info for Pharmacy OTHER STA (09:12)
--- NOTE | 2018-01-02 09:12 | CATHPROC ---
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 Clark StuartRN Recorder Mary Juares ,RT(R) Scrub Pallavi Miller,RT(R) (BS) Scrub Student, RADIOLOGY PHYSICIAN ASSISTANT/RT(R) Procedures Performed Procedure Location (Site) Vessel Name Coronary Angiograms LCA Left Coronary Coronary Angiograms RCA Right Coronary Drug Eluting Inflatio RCA Dist Right Coronary Drug Eluting Inflatio RCA Mid Right Coronary L Heart Cath PTCA RCA Dist Right Coronary PTCA RCA Mid Right Coronary Wire insertion Fem Art (right) Femoral Art Equipment Time Multimedia Instructional Designer Description Size Mfg Part Number Used/Scraped WIRE, [place] TORQUE ALLSTAR [id number] 08:10 [employer] 190CM Used 190CM *[id number] WIRE, [place] TORQUE ALLSTAR [id number] 08:27 [employer] 190CM Used 190CM *[id number] TRANSDUCER, TRUWAVE [id number] 07:13 WILLSON MYLES * Used W/STOCKCOCK *[id number] INTRODUCER SET, 07:31 [employer] FR 5 [id number] *[id number] Used MICROPUNCTURE STIFF [phone] *[id number] [phone] *[id number] *[id number] [phone] *[id number] *[id number] 08:56 DAIG/[employer]. [employer]ICAL ANGIOSEAL, FR6 VIP FR 6 Used *[id number] 07:13 [employer] INDUSTRIES BLANKET,WARM AIR CCL * Used *[id number] 07:13 [employer] PACK, CCL CUSTOM * Used *[id number] 07:13 [employer] PACER PEN, SKIN DUAL W/ RULER * Used *[id number] 07:55 [employer] BALLOON, 2.0 X 30MM EUPHORA 30MM Used *[id number] 08:00 [employer] BALLOON, 2.5 X 15MM EUPHORA 15MM Used *[id number] BALLOON, 2.75 X 20MM NC [id number] 08:16 [employer] 20MM Used EUPHORA *[id number] BALLOON, 3.0 X 8MM NC [id number] 08:47 MEDTR[employer]IC 8MM Used EUPHORA *[id number] BALLOON, 3.5 X 20MM NC [id number] 08:40 [employer] 20MM Used EUPHORA *4602508 [id number] 08:31 [employer] STENT, 2.75 15MM KAIT 2.75 15MM Used *7324566 [id number] 08:06 [employer] STENT, 2.75 15MM KAIT 2.75 15MM Used *[id number] 08:37 [employer]TR[employer] STENT, 3.0 34MM KAIT 3.0 34MM [id number] Used [id number] 07:46 [employer] MEDICAL 30 NELIA INDEFLATOR Used *[id number] 07:13 [employer] MEDICAL SHEATH, FR6.5 PRELUDE 11CM FR 6.5 038ACT Used *[id number] 07:13 [employer] WIRE, 3MMJ .035 180CM 180CM Used *[id number] 07:13 NAMIC MANIFOLD, 4 PORT * Used *[id number] 07:13 [employer] OMNIPAQUE, 350 MG, 150ML 150ML [id number] Used Equipment Model, Serial, Lot Number and Expiration Data Description Model Number Serial Number Lot Number Expiration Date ANGIOSEAL, FR6 VIP [id number] 07-28-2018 STENT, 2.75 15MM KAIT [id number] 07-25-2019 STENT, 3.0 34MM KAIT [id number] 07-07-2019 History: Allergies Allergy Reaction No Known Allergies History: Risk Factors Family History of Hypertension Dyslipidemia Previous MN Previous Heart Failure Premature CAD Yes Yes Yes No No Prior Valve Prior PCI Prior CABG Surgery No No No Cerebrovascular Peripheral Artery Chronic Lung On Dialysis Diabetes Disease Disease Disease No No No Yes No History: Stress Tests Stress or Imaging Studies Performed No History: Other Current Smoker Method Quit Packs a Day Years Used Pack Years No Cigarettes 5 Years Ago 2 40 80 Labs Hgb (g/dl) Hct (%) WBC (l/cumm) Platelets (thousands) 11.60-17.00 35.00-51.00 4.00-11.00 150.00-450.00 10.7 30.5 4.7 284 Glucose (mg/dl) BUN (mg/dl) Creatinine (mg/dl) BUN:Creatinine (1:x) 74.00-106.00 7.00-18.00 0.50-1.30 10.00-20.00 89 16 0.9 17.8 Na (meq/l) K (meq/l) 136.00-145.00 3.50-5.10 140 3.8 CPK-MB (ng/ML) 0.50-3.60 Not Drawn Medication Medication Total Dose (Bolus/Oral) Medication Total Dosage/Unit 1% XYLOCAINE 15 mL ANGIOMAX BOLUS 11 mL NTG (IC) 400 mcg PLAVIX 600 mg VERSED 1 mg Medications (Bolus/Oral) Medication Time Given Dosage/Unit Administered By Reason VERSED 01/02/2018 7:25:05 AM 1 mg Sade, Clark 1 mg VERSED given in lab by Clark Stuart RN via Peripheral IV. Ordered by Joby Bradley. 1% XYLOCAINE 01/02/2018 7:26:49 AM 15 mL Sade, Clark 15 mL 1% XYLOCAINE given in lab by Clark Stuart RN in Right Groin via Subcutaneous. Ordered by Joby Altamirano. ANGIOMAX BOLUS 01/02/2018 7:49:49 AM 11 mL Sade, Clark 11 mL ANGIOMAX BOLUS given in lab by Clark Stuart RN via Peripheral IV. Ordered by Joby Bradley. NTG (IC) 01/02/2018 8:06:32 AM 150 mcg Joby Bradley 150 mcg NTG (IC) given in lab by Joby Bradley via Intra-coronary. Ordered by Joby Bradley. NTG (IC) 01/02/2018 8:20:24 AM 150 mcg Joby Bradley 150 mcg NTG (IC) given in lab by Joby Bradley via Intra-coronary. Ordered by Joby Bradley. NTG (IC) 01/02/2018 8:53:37 AM 100 mcg Joby Bradley 100 mcg NTG (IC) given in lab by Joby Bradley via Intra-coronary. Ordered by Joby Bradley. PLAVIX 01/02/2018 9:03:50 AM 600 mg Clark Stuart 600 mg PLAVIX given in lab by Clark Stuart RN via Oral. Ordered by Joby Bradley. Medication (Drip) Medication Time Given Dosage/Unit Concentration/Unit Diluent (ml) Solution ANGIOMAX DRIP 01/02/2018 7:51:08 AM 1.745 mg/kg/hr 250 mg 50 NaCl .9 1.745 mg/kg/hr ANGIOMAX DRIP given in lab by Clark Stuart RN via Peripheral IV. Pump/Drip Flow = 26 ml/hr using NaCl .9 with a concentration of 250 mg in 50 ml. Ordered by Joby Bradley. IV Solutions 01/02/2018 7:12:16 AM 50 mL (IV) NaCl .9 Patient arrived on IV Solutions via Peripheral IV. Pump/Drip Flow using NaCl .9. NITROGLYCERIN DRIP 01/02/2018 8:01:06 AM 10 mcg/min 50 mg 250 D5W 10 mcg/min NITROGLYCERIN DRIP given in lab by Clark Stuart RN via Peripheral IV. Pump/Drip Flow = 3 ml/hr using D5W with a concentration of 50 mg in 250 ml. Ordered by Joby Bradley. Initial Case Assessment Cardiovascular HR NIBP 73 169/90 Edema Present Skin color Skin None Normal Warm Dry Circulatory - Right Pulses Dorsalis Pedis Femoral 3 3 Scale (0,1,2,3,4,d) Circulatory - Left Pulses Dorsalis Pedis Femoral 3 3 Scale (0,1,2,3,4,d) Neurological State Oriented to time-place- Alert Moves all extremities person Respiration - General Respiration Rate SpO2 (%) (B/min) 20 99 Final Case Assessment Cardiovascular HR NIBP 77 157/80 Edema Present Skin color Skin None Normal Warm Dry Circulatory - Right Pulses Dorsalis Pedis Femoral 3 3 Scale (0,1,2,3,4,d) Circulatory - Left Pulses Dorsalis Pedis Femoral 3 3 Scale (0,1,2,3,4,d) Neurological State Oriented to time-place- Alert Moves all extremities person Respiration - General Respiration Rate SpO2 (%) (B/min) 20 97 Chronological Log Time Study Chronological Log 7:07:12 Patient arrived via Bed. 7:07:13 Patient Name, D.O.B, / Armband Verified By R.N. 7:12:07 Consent signed by the physician and the patient and verified by the Cell Lead staff. 7:12:08 Pre-op and post- op instructions given; patient acknowledges understanding of instructions. 7:12:09 Verbal Stimulation=2 Physical Stimulation=2 Airway=2 Respiration=2 TOTAL=8. (0=absent, 1=li mited, 2=present) 7:12:11 Patient has been NPO for More than 6Hrs. 7:12:11 Skin Breakdown- none per patient 7:12:12 Patient Warmer Placed on the Table. 7:12:14 Beto Prominences Protected 7:12:15 A # 20 IV was noted in the Antecubital (right). Grade = 0 7:12:16 Patient arrived on IV Solutions via Peripheral IV. Pump/Drip Flow using NaCl .9. 7:12:18 History and physical on the chart or being dictated. Assessment: Initial Case, HR=73 BPM, EJLO=587/90 mmhg, Edema=None, Color=Normal, Skin = Warm, D ry Right Pulses: Peter Ped=3, Femoral=3 7:12:19 Left Pulses: Peter Ped=3, Femoral=3 Neurological: State=Alert, Ox3, SPEARS Respiration: Resp=20 B/min, SpO2=99 % Vitals capture started with the following parameters, Patient=Adult, Interval=5 min, Initial Pr yvedgq=438 mmHg, 7:16:48 Deflation Rate=5 mmHg, Cuff placed on Left Arm 7:17:05 Reference ECG taken 7:18:17 HR=71 bpm, EQFM=559/90 mmhg, YzB6=351.0 %, Resp=16 B/min 7:19:34 MD arrived. 7:21:30 Bilateral groins prepped with 2% chlorhexidine, and draped after a 3 minute waiting time. 7:22:35 HR=71 bpm, OILD=742/86 mmhg, SpO2=99.0 %, Resp=11 B/min Time Out. Correct patient, correct procedure, correct physician, labs, allergies, and equipment verified with cathode maker 7:24:18 team present. Fire risk assesment completed (see hard stop sheet for coding). Time Out Concu rred by MD and individual staff in procedure. 7:25:05 1 mg VERSED given in lab by Clark Stuart, RN via Peripheral IV. Ordered by Joby Bradley. 7:26:48 Case Start 7:26:49 15 mL 1% XYLOCAINE given in lab by Clark Stuart, RN in Right Groin via Subcutaneous. Ordered by Joby Bradley. 7:27:36 HR=71 bpm, LOPG=935/81 mmhg, SpO2=98.0 %, Resp=18 B/min 7:28:20 Pressure channel 1 zeroed. 7:30:32 Access site was Right Femoral Artery. A INTRODUCER SET, MICROPUNCTURE STIFF FR 5 was advanced into the Fem Art (right) using the Fernando aiken 7:30:44 technique. 7:31:00 An injection in the Fem Art (right) was made through the INTRODUCER SET, MICROPUNCTURE STIFF FR 5. A SHEATH, FR6.5 PRELUDE 11CM FR 6.5 was exchanged in the Fem Art (right). This was necessary in order to 7:31:13 accomodate a larger catheter. 7:32:33 HR=72 bpm, PTGB=850/84 mmhg, SpO2=98.0 %, Resp=17 B/min A JL 4.0 INFINITI CATHETER FR 6 was advanced over a wire. OMNIPAQUE, 350 MG, 150ML 150ML was use d for 7:33:06 injections. Recorded Pressure: Ao, HR=70, Condition=Condition 1 7:35:02 (Aorta) Ao 163/72/108 7:35:14 The LCA was injected and visualized at various angles. OMNIPAQUE, 350 MG, 150ML 150ML used. 7:37:36 HR=64 bpm, OWNW=179/74 mmhg, SpO2=97.0 %, Resp=7 B/min After removing the current catheter a 3DRC INFINITI CATHETER FR 6 was advanced over a WIRE, 3MMJ .035 180CM 7:38:08 180CM. 7:39:16 The RCA was injected and visualized at various angles. OMNIPAQUE, 350 MG, 150ML 150ML used. 7:42:37 HR=75 bpm, QJAC=973/85 mmhg, SpO2=97.0 %, Resp=0 B/min After removing the current catheter a JR 4.0 GUIDE CATHETER FR 6 was advanced over a WIRE, ATW M LUCINDA 195CM 7:46:11 195CM. 7:47:36 HR=72 bpm, NCGS=774/81 mmhg, SpO2=99.0 %, Resp=17 B/min 7:49:49 11 mL ANGIOMAX BOLUS given in lab by Clark Stuart RN via Peripheral IV. Ordered by Joby Bradley. 7:50:18 A WIRE, ATW MARKER 195CM 195CM was inserted via Fem Art (right). 1.745 mg/kg/hr ANGIOMAX DRIP given in lab by Clark Stuart RN via Peripheral IV. Pump/Drip Flow = 26 ml/hr using 7:51:08 NaCl .9 with a concentration of 250 mg in 50 ml. Ordered by Joby Bradley. 7:51:42 Interventional wire has crossed the lesion 7:52:38 HR=71 bpm, AQAV=239/85 mmhg, SpO2=98.0 %, Resp=10 B/min A BALLOON, 2.0 X 30MM EUPHORA 30MM was inserted over WIRE, ATW MARKER 195CM 195CM via the Fem Ar t 7:54:37 (right). A BALLOON, 2.0 X 30MM EUPHORA 30MM over a WIRE, ATW MARKER 195CM 195CM in the RCA Mid was inflat ed using 7:55:59 a 30 NELIA INDEFLATOR at 18 nelia for 20 sec. A BALLOON, 2.0 X 30MM EUPHORA 30MM over a WIRE, ATW MARKER 195CM 195CM in the RCA Mid was inflat ed using 7:57:12 a 30 NELIA INDEFLATOR at 18 nelia for 20 sec. 7:57:39 HR=75 bpm, WAUJ=249/84 mmhg, SpO2=98.0 %, Resp=8 B/min 7:58:20 Balloon Removed. A BALLOON, 2.5 X 15MM EUPHORA 15MM was inserted over WIRE, ATW MARKER 195CM 195CM via the Fem Ar t 8:00:45 (right). 10 mcg/min NITROGLYCERIN DRIP given in lab by Clark Stuart RN via Peripheral IV. Pump/Drip Flow = 3 ml/hr using 8:01:06 D5W with a concentration of 50 mg in 250 ml. Ordered by Joby Bradley. A BALLOON, 2.5 X 15MM EUPHORA 15MM over a WIRE, ATW MARKER 195CM 195CM in the RCA Dist was infla elza using 8:01:55 a 30 NELIA INDEFLATOR at 10 nelia for 20 sec. A BALLOON, 2.5 X 15MM EUPHORA 15MM over a WIRE, ATW MARKER 195CM 195CM in the RCA Dist was infla elza using 8:02:33 a 30 NELIA INDEFLATOR at 12 nelia for 20 sec. 8:02:40 HR=74 bpm, DJOY=278/84 mmhg, SpO2=98.0 %, Resp=8 B/min A BALLOON, 2.5 X 15MM EUPHORA 15MM over a WIRE, ATW MARKER 195CM 195CM in the RCA Mid was inflat ed using 8:03:26 a 30 NELIA INDEFLATOR at 12 nelia for 30 sec. 8:04:15 Balloon Removed. A STENT, 2.75 15MM KAIT 2.75 15MM was advanced through a JR 4.0 GUIDE CATHETER FR 6 over a WIRE, ATW 8:05:45 MARKER 195CM 195CM. 8:06:32 150 mcg NTG (IC) given in lab by Joby Bradley via Intra-coronary. Ordered by Joby Bradley. 8:07:37 HR=75 bpm, PSXO=777/82 mmhg, SpO2=98.0 %, Resp=0 B/min 8:08:03 Stent not deployed. Stent removed and intact. 8:10:10 A WIRE, HI TORQUE ALLSTAR 190CM 190CM was inserted via Fem Art (right). 8:11:27 Interventional wire has crossed the lesion 8:12:38 HR=87 bpm, GGRH=245/83 mmhg, SpO2=97.0 %, Resp=8 B/min A STENT, 2.75 15MM KAIT 2.75 15MM was advanced through a JR 4.0 GUIDE CATHETER FR 6 over a WIRE, HI 8:13:26 TORQUE ALLSTAR 190CM 190CM. 8:14:53 Stent not deployed. Stent removed and intact. A BALLOON, 2.75 X 20MM NC EUPHORA 20MM was inserted over WIRE, HI TORQUE ALLSTAR 190CM 190CM via the 8:16:12 Fem Art (right). A BALLOON, 2.75 X 20MM NC EUPHORA 20MM over a WIRE, HI TORQUE ALLSTAR 190CM 190CM in the RCA Mid was 8:17:13 inflated using a 30 NELIA INDEFLATOR at 20 nelia for 30 sec. 8:17:41 HR=69 bpm, NZSI=698/78 mmhg, SpO2=97.0 %, Resp=8 B/min A BALLOON, 2.75 X 20MM NC EUPHORA 20MM over a WIRE, HI TORQUE ALLSTAR 190CM 190CM in the RCA Mid was 8:18:04 inflated using a 30 NELIA INDEFLATOR at 20 nelia for 22 sec. 8:19:01 Balloon Removed. 8:20:24 150 mcg NTG (IC) given in lab by Joby Bradley via Intra-coronary. Ordered by Joby Bradley. A STENT, 2.75 15MM KAIT 2.75 15MM was advanced through a JR 4.0 GUIDE CATHETER FR 6 over a WIRE, HI 8:20:29 TORQUE ALLSTAR 190CM 190CM. 8:22:39 Stent not deployed. Stent removed and intact. 8:22:40 HR=63 bpm, SGFG=756/80 mmhg, SpO2=97.0 %, Resp=0 B/min 8:24:12 Wires removed 8:25:57 The previous wire was exchanged for a WIRE, 3MMJ .035 180CM 180CM. 8:27:26 A 2nd WIRE, HI TORQUE ALLSTAR 190CM 190CM was inserted via Fem Art (right). 8:27:43 HR=64 bpm, DLVV=877/72 mmhg, SpO2=97.0 %, Resp=12 B/min, Pain=0, Srini=9, Gardner=2 A STENT, 2.75 15MM KAIT 2.75 15MM was advanced through a AL 1 GUIDE CATHETER FR 6 over a WIRE, H I TORQUE 8:32:16 ALLSTAR 190CM 190CM. 8:32:42 HR=66 bpm, DDNA=510/78 mmhg, SpO2=98.0 %, Resp=0 B/min A STENT, 2.75 15MM KAIT 2.75 15MM was deployed using a 30 NELIA INDEFLATOR at 14 atmospheres for 3 0 seconds 8:33:25 in the RCA Dist. 8:35:07 Delivery device removed A STENT, 3.0 34MM KAIT 3.0 34MM was advanced through a AL 1 GUIDE CATHETER FR 6 over a WIRE, HI TORQUE 8:36:24 ALLSTAR 190CM 190CM. 8:37:43 HR=63 bpm, YFGU=385/75 mmhg, SpO2=98.0 %, Resp=0 B/min A STENT, 3.0 34MM KAIT 3.0 34MM was deployed using a 30 NELIA INDEFLATOR at 14 atmospheres for 39 seconds in 8:37:48 the RCA Mid. 8:39:05 Delivery device removed A BALLOON, 3.5 X 20MM NC EUPHORA 20MM was inserted over WIRE, HI TORQUE ALLSTAR 190CM 190CM via the 8:40:19 Fem Art (right). A BALLOON, 3.5 X 20MM NC EUPHORA 20MM over a WIRE, HI TORQUE ALLSTAR 190CM 190CM in the RCA Mid was 8:41:54 inflated using a 30 NELIA INDEFLATOR at 16 nelia for 20 sec. 8:42:42 HR=64 bpm, GNQY=254/85 mmhg, SpO2=98.0 %, Resp=2 B/min A BALLOON, 3.5 X 20MM NC EUPHORA 20MM over a WIRE, HI TORQUE ALLSTAR 190CM 190CM in the RCA Mid was 8:43:08 inflated using a 30 NELIA INDEFLATOR at 20 nelia for 20 sec. 8:45:36 Balloon Removed. A BALLOON, 3.0 X 8MM NC EUPHORA 8MM was inserted over WIRE, HI TORQUE ALLSTAR 190CM 190CM via th e Fem 8:47:17 Art (right). 8:47:45 HR=62 bpm, XOHV=057/81 mmhg, SpO2=99.0 %, Resp=11 B/min A BALLOON, 3.0 X 8MM NC EUPHORA 8MM over a WIRE, HI TORQUE ALLSTAR 190CM 190CM in the RCA Dist w as 8:49:24 inflated using a 30 NELIA INDEFLATOR at 18 nelia for 17 sec. 8:51:30 Balloon Removed. 8:51:36 Wire removed 8:51:41 Catheter was removed A 3DRC INFINITI CATHETER FR 6 was advanced over a wire. OMNIPAQUE, 350 MG, 150ML 150ML was used for 8:51:51 injections. 8:53:21 HR=59 bpm, ULZP=058/80 mmhg, SpO2=99.0 %, Resp=12 B/min 8:53:37 100 mcg NTG (IC) given in lab by Joby Bradley via Intra-coronary. Ordered by Joby Bradley. 8:54:34 Catheter was removed 8:55:37 ANGIOSEAL, FR6 VIP FR 6 placement in the Fem Art (right) 8:56:34 Case End (Physician broke scrub) Assessment: Final Case, HR=77 BPM, JPXQ=654/80 mmhg, Edema=None, Color=Normal, Skin = Warm, Dry Right Pulses: Peter Ped=3, Femoral=3 8:56:41 Left Pulses: Peter Ped=3, Femoral=3 Neurological: State=Alert, Ox3, SPEARS Respiration: Resp=20 B/min, SpO2=97 % 8:57:03 Catheter(s) removed without difficulty 8:57:19 Sterile dressing applied to site 8:57:20 No case complications noted. 8:57:20 Cine recording checked. 8:57:21 Bedside Report will be given. 8:57:23 Implantable Device card placed in patient's chart. 8:57:26 A Left Heart Cath was performed. 8:57:45 HR=64 bpm, JSGH=419/77 mmhg, SpO2=97.0 %, Resp=15 B/min 9:03:40 HR=61 bpm, YEDK=847/75 mmhg, SpO2=98.0 %, Resp=13 B/min 9:03:50 600 mg PLAVIX given in lab by Clark Stuart, RN via Oral. Ordered by Joby Bradley. 9:05:56 Patient moved to [facility] End Study - Contrast Media Used In Study Contrast Total Opened (mL) Total Used (mL) Total Wasted (mL) Omnipaque 205 205 0 End Study - Maximum Contrast Load Max Contrast Load (mL) 414.1 End Study - Radiation Exposure Fluoro Time (minutes) 24.9 End Study - Sheaths Sheaths Pulled By Sheath Hold Time (min) Joby Bradley End Study - Patient Disposition Complications Transferred To Interventional Outcome No Telemetry Bed successful
[2018-01-02] MEDS ORDERED: Sod Chloride 0.9% Inj 1,500 ML IV.CONT SCH (09:15)
[2018-01-02] MEDS: Senna/Docusate Sodium 8.6/50 MG Tablet PO SCH ×2 (09:32→21:50)
[2018-01-02] MEDS: Metoprolol Tartrate 25 MG Tablet PO SCH ×2 (09:42→21:49)
[2018-01-02] MEDS: amLODIPine 5 MG Tablet PO SCH (09:42)
[2018-01-02] MEDS: Famotidine PF Inj 20 MG/2 ML Vial IV.PUSH SCH ×2 (09:42→21:51)
[2018-01-02 10:54] LABS: Baso % (Auto) 0.6 % (0.0-2.0); Eos # (Auto) 0.1 th/mm3 (0.0-0.4); Eos % (Auto) 1.9 % (0.0-4.0); Hemoglobin 10.9 gm/dL (13.0-17.0); Lymph # (Auto) 0.8 th/mm3 (1.0-4.8); Lymph % (Auto) 16.8 % (9.0-44.0); Mean Corpuscular Hemoglobin 34.8 pg (27.0-34.0); Mean Corpuscular Volume 99.3 fL (80.0-100.0); Mean Platelet Volume 7.8 fL (7.0-11.0); Mono # (Auto) 0.4 th/mm3 (0.0-0.9); Mono % (Auto) 9.1 % (0.0-8.0); Neut # (Auto) 3.4 th/mm3 (1.8-7.7); Neut % (Auto) 71.6 % (16.0-70.0); Platelet Count 289 th/mm3 (150-450); Red Blood Count 3.12 mil/mm3 (4.50-5.90); Red Cell Distribution Width 13.1 % (11.6-17.2); White Blood Count 4.8 th/mm3 (4.0-11.0)
--- NOTE | 2018-01-02 11:18 | P.PNNP ---
Subjective Interval history: Patient was resting in bed. Patient had no complaints, stated he got 2 stents placed in the soap slabber today. Patient's renal function has improved. <Tanya Larsen - Last Filed: 01/02/18 11:11> Physical Exam Vital signs: Vital Signs 01/01/18 12:06 01/01/18 12:47 01/01/18 16:45 Temperature 99.6 F 99 F Pulse Rate 70 96 H 83 Respiratory Rate 18 20 Blood Pressure 164/70 H 141/81 H Pulse Oximetry 98 99 01/01/18 19:00 01/01/18 23:00 01/02/18 03:00 Temperature 98.5 F 98.5 F 98.2 F Pulse Rate 81 69 85 Respiratory Rate 18 18 18 Blood Pressure 153/86 H 146/85 H 144/79 H Pulse Oximetry 99 97 98 01/02/18 09:17 01/02/18 09:28 01/02/18 09:47 Temperature 97.9 F Pulse Rate 60 71 58 L Respiratory Rate 18 18 18 Blood Pressure 142/81 H 148/74 H 141/77 H Pulse Oximetry 100 99 99 01/02/18 10:00 01/02/18 11:00 01/02/18 11:05 Temperature 99.2 F Pulse Rate 52 L 59 L 64 Respiratory Rate 18 Blood Pressure 144/69 H Pulse Oximetry 98 Intake & Output 01/01/18 01/02/18 01/02/18 18:59 06:59 18:59 Intake Total 2310 / 2310 2500 / 2500 Output Total 350 / 350 500 / 500 Balance -350 / -350 1810 / 1810 2500 / 2500 Weight 74.6 kg Intake: IV 1100 / 1100 2500 / 2500 Heparin/NS PF Inj 1,500 ML @ 0 1500 / 1500 mls/hr .ROUTE .STK-MED ONE Rx#: [id number] NS Inj 1,000 ML @ 100 mls/hr IV 1000 / 1000 .CONT .Q10H GUERRERO Rx#:[id number] 1/2 Normal Saline Inj 1,000 ML 1000 / 1000 @ 42 mls/hr IV.CONT .[id number] GUERRERO Rx#:[id number] Rocephin Inj 1,000 MG In NS Inj 100 / 100 100 ML @ 200 mls/hr IV.SIG Q24H GUERRERO Rx#:[id number] Oral 210 / 210 Other 1000 / 1000 Output: Urine Amount (Catheter) 350 / 350 500 / 500 Indwelling Urethral Catheter 350 / 350 500 / 500 Other: Other Intake Source Saline Solution # Bowel Movements 0 - Constitutional no acute distress - Routine HEENT Exam Head: Present: normocephalic Eye: Present: EOMI, PERRL ENT: Present: mucous membranes moist - Routine Neck Exam Present: trachea midline. Absent: JVD - Routine Respiratory Exam Present: CTA bilaterally. Absent: accessory muscle use - Routine Abdominal Exam Present: soft - Routine Extremities Exam Absent: edema - Routine Neurological Exam Present: alert, oriented X3 - Routine Psychiatric Exam Present: normal affect, normal thought process - Urinary Catheter Management Indwelling Urethral Catheter Cath placed during this visit: yes Urethral indwelling: Yes Reason for continuing: Acute urinary retention Insertion date: 12/28/17 Insertion time: 22:15 <Tanya Larsen - Last Filed: 01/02/18 11:11> Vital signs: Vital Signs 01/02/18 10:00 01/02/18 11:00 01/02/18 11:05 Temperature 99.2 F Pulse Rate 52 L 59 L 64 Respiratory Rate 18 Blood Pressure 144/69 H Pulse Oximetry 98 01/02/18 12:00 01/02/18 13:00 01/02/18 14:00 Temperature Pulse Rate 58 L 64 68 Respiratory Rate Blood Pressure Pulse Oximetry 01/02/18 14:52 01/02/18 15:00 01/02/18 16:00 Temperature 99.4 F Pulse Rate 67 66 67 Respiratory Rate 18 Blood Pressure 148/76 H Pulse Oximetry 99 01/02/18 16:34 01/02/18 17:00 01/02/18 18:00 Temperature Pulse Rate 69 70 110 H Respiratory Rate 18 Blood Pressure 156/82 H Pulse Oximetry 99 01/02/18 20:00 01/02/18 21:00 01/02/18 22:00 Temperature 99.2 F Pulse Rate 82 78 104 H Respiratory Rate 18 Blood Pressure 132/55 L Pulse Oximetry 98 01/02/18 23:00 01/03/18 00:00 01/03/18 01:00 Temperature 99.4 F Pulse Rate 76 82 80 Respiratory Rate 18 Blood Pressure 130/74 Pulse Oximetry 97 01/03/18 02:00 01/03/18 03:00 01/03/18 04:00 Temperature 99.5 F Pulse Rate 72 68 95 H Respiratory Rate 18 Blood Pressure 143/71 H Pulse Oximetry 97 01/03/18 05:00 01/03/18 06:00 01/03/18 07:00 Temperature Pulse Rate 124 H 72 70 Respiratory Rate Blood Pressure Pulse Oximetry 01/03/18 08:00 01/03/18 08:17 01/03/18 09:00 Temperature 99.8 F H Pulse Rate 94 H 92 H 84 Respiratory Rate 18 Blood Pressure 131/66 Pulse Oximetry 97 Intake & Output 01/02/18 01/03/18 01/03/18 18:59 06:59 18:59 Intake Total 3250 / 3250 2600 / 2600 Output Total 850 / 850 400 / 400 Balance 2400 / 2400 2200 / 2200 Weight 75.9 kg Intake: IV 2750 / 2750 2600 / 2600 Heparin/NS PF Inj 1,500 ML @ 0 1500 / 1500 mls/hr .ROUTE .STK-MED ONE Rx#: [id number] NS Inj 1,000 ML @ 100 mls/hr IV 1000 / 1000 2500 / 2500 .CONT .Q10H GUERRERO Rx#:[id number] Rocephin Inj 1,000 MG In NS Inj 100 / 100 100 ML @ 200 mls/hr IV.SIG Q24H GUERRERO Rx#:[id number] Oral 500 / 500 Output: Urine 400 / 400 Urine Amount (Catheter) 850 / 850 Indwelling Urethral Catheter 850 / 850 Other: # Voids 1 Date of Last Bowel Movement 01/02/18 01/02/18 01/03/18 # Bowel Movements 1 1 - Urinary Catheter Management Indwelling Urethral Catheter Cath placed during this visit: no <Antione Celeste - Last Filed: 01/03/18 09:51> Assessment and Plan - Assessment (1) Acute renal failure Code(s): N17.9 - Acute kidney failure, unspecified Status: Acute Qualifiers: Acute renal failure type: unspecified Qualified Code(s): N17.9 - Acute kidney failure, unspecified Plan: Likely due to pre-renal azotemia. He has been having diarrhea for several weeks , also admits that he had reduced oral fluid intake. In addition, he was started on Lisinopril 3 weeks ago which could have dropped his BP more than what was desired. Renal function appears to have improved. Will sign off at this time. (2) Hyponatremia Code(s): E87.1 - Hypo-osmolality and hyponatremia Status: Acute Plan: Could be hypovolemic hyponatremia. It has improved. (3) Acute ST elevation myocardial infarction (STEMI) Code(s): I21.3 - ST elevation (STEMI) myocardial infarction of unspecified site Status: Acute Qualifiers: Involved coronary artery: unspecified coronary artery Qualified Code(s): I21.3 - ST elevation (STEMI) myocardial infarction of unspecified site Plan: Patient had cardiac catheterization today, had stent placement, cardiology following. <Tanya Larsen - Last Filed: 01/02/18 11:11> - Assessment (1) Acute renal failure Code(s): N17.9 - Acute kidney failure, unspecified Status: Acute Qualifiers: Acute renal failure type: unspecified Qualified Code(s): N17.9 - Acute kidney failure, unspecified (2) Hyponatremia Code(s): E87.1 - Hypo-osmolality and hyponatremia Status: Acute (3) Acute ST elevation myocardial infarction (STEMI) Code(s): I21.3 - ST elevation (STEMI) myocardial infarction of unspecified site Status: Acute Qualifiers: Involved coronary artery: unspecified coronary artery Qualified Code(s): I21.3 - ST elevation (STEMI) myocardial infarction of unspecified site - Attending Attestation patient was seen and examined. Agree with above assessment and plan. Renal function has improved, we will sign off at this time. <Antione Celeste - Last Filed: 01/03/18 09:51>
[2018-01-02] MEDS ORDERED: Iohexol 350 MG/ML 100 ML Vial (for Cath Lab) IVCONTRAST ONE (11:32)
--- NOTE | 2018-01-02 11:58 | MA ---
cc: Joby Bradley MD DATE: 01/02/2018 PROCEDURES PERFORMED: 1. Coronary angiography. 2. Complex balloon angioplasty. 3. Stenting of the distal and mid right coronary artery. DESCRIPTION OF PROCEDURE: The patient was brought to the cardiac catheterization lab in the fasting state. The right groin was prepped and draped in sterile fashion. Using 1% lidocaine for local anesthesia and a micropuncture set, access was obtained in the right femoral artery. Angiography demonstrated the sheath was in good position. I changed the microcatheter to a 6-Serbian sheath. Coronary angiography was then performed using a left 4 Junito for left coronary artery and a 3DRC for the right coronary artery. The right coronary artery was the culprit vessel. I started with a JR4 guiding catheter wired the lesion with a marker wire and measured. I was able to get the wire pass distally. I was not able to pass anything more than a balloon. I ballooned distally in the mid segment, but unable to pass the stent. I tried a kameron wire with an Star wire, did some more aggressive ballooning, and still was not able to pass the stent. I pulled the guiding catheter out. It underwent a left one Amplatz that engaged very nicely wired with an Allstar wire. I now was able to deliver stent distally, which was a 2.75 x 15 mm Oswaldo stent at deployed at 14 atmospheres. I then stented the mid lesion with a 3.0 x 34 mm Oswaldo stent at 14 atmospheres. I postdilated the distal stent with a 3 x 8 noncompliant balloon at 18 atmospheres, and I dilated the mid stent with a 3.5 NC balloon at 16 atmospheres in the mid segment at 20 atmospheres proximally. Angiography demonstrates a superb result. There were no complications. We had used 205 mL of dye. I did not feel it was safe to proceed with fixing the circumflex marginal branch and probably will try medical management of that. FINDINGS: 1. Hemodynamics. Aortic pressure is 163/72 with a mean of 108. 2. Coronary angiography. The left main coronary artery appears normal. It divides into the LAD and circumflex vessels. The LAD has a 60% focal mid stenosis. Diagonal branch has about 20% ostial and mid irregularities. Circumflex artery has about 25% stenosis at the bifurcation of the obtuse marginal branch. First obtuse marginal branch has a focal 75% eccentric proximal stenosis. The posterolateral branch of the circumflex artery has a 50% stenosis. The right coronary artery is dominant and has a long zone of calcified mid disease, 90% severity and also a 90% distal stenosis. 3. Results of stenting. Following stenting of the mid and distal vessels, 30% residual stenosis had been achieved at both with SHARON 3 flow. CONCLUSIONS: 1. Three-vessel coronary artery disease. 2. Extremely complex right coronary artery disease, now successfully stented with 2 drug-eluting stents. 3. Persistent disease of the circumflex marginal branch, which can be stented in the future if he develops any recurrent ischemia. PLAN: The patient will be continued on aspirin and Plavix ideally for 1 year. He has quit smoking and needs to not return to smoking. He needs to be on statin therapy. We will hydrate aggressively for the contrast load. MD TINA Manzano/fazal , 09:10 AM , 09:17 AM JAQUELINE
[2018-01-02 12:01] LABS: Alanine Aminotransferase 14 U/L (12-78); Albumin 2.6 g/dL (3.4-5.0); Anion Gap 9 meq/L (5-15); Aspartate Aminotransferase 15 U/L (15-37); Blood Urea Nitrogen 8 mg/dL (7-18); Calcium 7.7 mg/dL (8.5-10.1); Carbon Dioxide 25.8 meq/L (21.0-32.0); Chloride 105 meq/L (98-107); Glomerular Filtration Rate Greater Than 89 mL/min (>89); Glucose,Random 93 mg/dL (74-106); Potassium 3.9 meq/L (3.5-5.1); Sodium 140 meq/L (136-145)
[2018-01-02 12:02] LABS: Alkaline Phosphatase 61 U/L (45-117); Total Protein 5.5 g/dL (6.4-8.2)
[2018-01-02] MEDS ORDERED: Isosorbide Mononitrate 60 MG ER 24HR Tablet (Imdur) PO ONE (16:30)
--- NOTE | 2018-01-02 17:17 | P.PNIM ---
Subjective Interval history: No chest pain, no shortness of breath. The patient states that he feels fine today and wants to go home. Physical Exam Vital signs: Vital Signs 01/01/18 19:00 01/01/18 23:00 01/02/18 03:00 Temperature 98.5 F 98.5 F 98.2 F Pulse Rate 81 69 85 Respiratory Rate 18 18 18 Blood Pressure 153/86 H 146/85 H 144/79 H Pulse Oximetry 99 97 98 01/02/18 09:17 01/02/18 09:28 01/02/18 09:47 Temperature 97.9 F Pulse Rate 60 71 58 L Respiratory Rate 18 18 18 Blood Pressure 142/81 H 148/74 H 141/77 H Pulse Oximetry 100 99 99 01/02/18 10:00 01/02/18 11:00 01/02/18 11:05 Temperature 99.2 F Pulse Rate 52 L 59 L 64 Respiratory Rate 18 Blood Pressure 144/69 H Pulse Oximetry 98 01/02/18 12:00 01/02/18 13:00 01/02/18 14:00 Temperature Pulse Rate 58 L 64 68 Respiratory Rate Blood Pressure Pulse Oximetry 01/02/18 14:52 01/02/18 15:00 01/02/18 16:00 Temperature 99.4 F Pulse Rate 67 66 67 Respiratory Rate 18 Blood Pressure 148/76 H Pulse Oximetry 99 01/02/18 16:34 Temperature Pulse Rate 69 Respiratory Rate 18 Blood Pressure 156/82 H Pulse Oximetry 99 Intake & Output 01/01/18 01/02/18 01/02/18 18:59 06:59 18:59 Intake Total 2310 / 2310 2500 / 2500 Output Total 350 / 350 500 / 500 Balance -350 / -350 1810 / 1810 2500 / 2500 Weight 74.6 kg Intake: IV 1100 / 1100 2500 / 2500 Heparin/NS PF Inj 1,500 ML @ 0 1500 / 1500 mls/hr .ROUTE .[facility] Rx#: [id number] NS Inj 1,000 ML @ 100 mls/hr IV 1000 / 1000 .CONT .Q10H [facility] Rx#:[id number] 1/2 Normal Saline Inj 1,000 ML 1000 / 1000 @ 42 mls/hr IV.CONT .[id number] [facility] Rx#:[id number] Rocephin Inj 1,000 MG In NS Inj 100 / 100 100 ML @ 200 mls/hr IV.SIG Q24H [facility] Rx#:[id number] Oral 210 / 210 Other 1000 / 1000 Output: Urine Amount (Catheter) 350 / 350 500 / 500 Indwelling Urethral Catheter 350 / 350 500 / 500 Other: Other Intake Source Saline Solution Date of Last Bowel Movement 01/02/18 # Bowel Movements 0 Narrative: General patient in no acute distress HEENT extraocular movements are intact, clear oropharyngeal mucosa, well- healing scab on the left side of his forehead. Cardiovascular S1-S2 audible, RRR, no murmurs rubs or gallops Respiratory clear to auscultation bilaterally Abdomen soft, nontender, nondistended, normal bowel sounds Extremities no edema 2+ distal pulses in bilateral upper and lower extremities Neuro cranial nerves II through XII intact - Urinary Catheter Management Indwelling Urethral Catheter Cath placed during this visit: yes Urethral indwelling: Yes Reason for continuing: Acute urinary retention Insertion date: 12/28/17 Insertion time: 22:15 Results - Labs CBC & Chem 7: 01/02/18 10:06 01/02/18 10:06 Laboratory Results - last 24 hr 01/02/18 01/02/18 01/02/18 10:06 10:06 10:06 WBC 4.8 RBC 3.12 L Hgb 10.9 L Hct 31.0 L MCV 99.3 MCH 34.8 H MCHC 35.0 RDW 13.1 Plt Count 289 MPV 7.8 Neut % (Auto) 71.6 H Lymph % (Auto) 16.8 Rich % (Auto) 9.1 H Eos % (Auto) 1.9 Baso % (Auto) 0.6 Neut # (Auto) 3.4 Lymph # (Auto) 0.8 L Rich # (Auto) 0.4 Eos # (Auto) 0.1 Baso # (Auto) 0.0 WBC Differential . Differential Comment Auto diff final APTT 110.2 H* D Sodium 140 Potassium 3.9 Chloride 105 Carbon Dioxide 25.8 Anion Gap 9 BUN 8 Creatinine 0.83 Estimated GFR Greater than 89 Random Glucose 93 Calcium 7.7 L Total Bilirubin 0.2 AST 15 ALT 14 Alkaline Phosphatase 61 Total Protein 5.5 L Albumin 2.6 L Assessment and Plan - Plan This patient is a 67-year-old male with a diagnosis of hypertension and alcohol dependence. He presents to the emergency department dehydrated with dizziness and weakness. The patient was found to have an elevated serum creatinine and troponin was elevated at 0.36. EKG did show slight ST segment elevation in the inferior leads. Patient was admitted under the critical care service and now has been transferred to the hospitalist service. 1. ST segment elevation in the inferior leads/possible STEMI 2. Acute kidney injury, prerenal resolved 3. Hypertension No complaints of chest pain, no palpitations. Continue current management with aspirin, beta-shahnaz, Plavix, statin. Acute kidney injury has resolved. Patient underwent cardiac catheter sedation today and received 2 stents 1 to the distal and one to the mid RCA. Patient should continue aspirin, Plavix for 1 year. Continue beta-shahnaz and statin. Plan is to discharge the patient tomorrow a.m. The dose of the patient's aspirin was increased to 10 mg p.o. daily. Continue IV fluids as the patient arrived with acute kidney injury and had a cardiac cath this morning. DVT prophylaxis, patient is currently on heparin drip.
[2018-01-02] MEDS: Sod Chloride 0.9% Inj 1,000 ML IV.CONT SCH (18:00)
[2018-01-03] MEDS: Sod Chloride 0.9% Inj 1,000 ML IV.CONT SCH (03:26)
[2018-01-03 04:23] LABS: Baso % (Auto) 0.5 % (0.0-2.0); Eos # (Auto) 0.3 th/mm3 (0.0-0.4); Eos % (Auto) 4.6 % (0.0-4.0); Hematocrit 27.4 % (39.0-51.0); Hemoglobin 9.5 gm/dL (13.0-17.0); Lymph # (Auto) 0.9 th/mm3 (1.0-4.8); Lymph % (Auto) 16.3 % (9.0-44.0); Mean Corpuscular HGB Conc 34.6 % (32.0-36.0); Mean Corpuscular Hemoglobin 34.3 pg (27.0-34.0); Mean Corpuscular Volume 99.3 fL (80.0-100.0); Mean Platelet Volume 7.9 fL (7.0-11.0); Mono # (Auto) 0.5 th/mm3 (0.0-0.9); Mono % (Auto) 9.5 % (0.0-8.0); Neut # (Auto) 3.9 th/mm3 (1.8-7.7); Neut % (Auto) 69.1 % (16.0-70.0); Platelet Count 250 th/mm3 (150-450); Red Blood Count 2.76 mil/mm3 (4.50-5.90); Red Cell Distribution Width 13.1 % (11.6-17.2); White Blood Count 5.6 th/mm3 (4.0-11.0)
[2018-01-03 04:41] LABS: Alanine Aminotransferase 16 U/L (12-78); Albumin 2.3 g/dL (3.4-5.0); Alkaline Phosphatase 51 U/L (45-117); Anion Gap 8 meq/L (5-15); Aspartate Aminotransferase 17 U/L (15-37); Blood Urea Nitrogen 7 mg/dL (7-18); Calcium 7.4 mg/dL (8.5-10.1); Chloride 110 meq/L (98-107); Glomerular Filtration Rate Greater Than 89 mL/min (>89); Glucose,Random 79 mg/dL (74-106); Potassium 3.6 meq/L (3.5-5.1); Sodium 143 meq/L (136-145); Total Protein 4.9 g/dL (6.4-8.2)
[2018-01-03 04:42] LABS: Creatine Kinase 71 U/L (39-308)
[2018-01-03] MEDS ORDERED: Isosorbide Mononitrate 60 MG ER 24HR Tablet (Imdur) PO SCH (07:00)
[2018-01-03] MEDS: Famotidine PF Inj 20 MG/2 ML Vial IV.PUSH SCH (08:22)
[2018-01-03] MEDS: Metoprolol Tartrate 25 MG Tablet PO SCH (08:22)
[2018-01-03] MEDS: Senna/Docusate Sodium 8.6/50 MG Tablet PO SCH (08:25)
[2018-01-03] MEDS ORDERED: amLODIPine 10 MG Tablet PO SCH (09:00)
--- NOTE | 2018-01-03 10:41 | P.PNCA ---
Subjective Interval history: No complaints Medications and Allergies Active Medications: Active Medications Acetaminophen (Tylenol) 650 mg PO Q6H PRN PRN Reason: PAIN 1-2 AND/OR FEVER >101F Al Hydroxide/Mg Hydroxide (Milk Of Magnesia Liq) 30 ml PO Q12H PRN PRN Reason: Mild Constipation Albuterol (Duoneb Neb (Prn)) 1 ampul NEB Q2HR NEB PRN PRN Reason: WHEEZING Amlodipine Besylate (Norvasc) 10 mg PO DAILY [facility] Last Admin: 01/03/18 08:22 Dose: 10 mg Aspirin (Aspirin Chew) 81 mg PO DAILY [facility] Last Admin: 01/03/18 08:21 Dose: 81 mg Atorvastatin Calcium (Lipitor) 40 mg PO HS [facility] Last Admin: 01/02/18 21:49 Dose: 40 mg Bisacodyl (Dulcolax Supp) 10 mg RECTAL DAILY PRN PRN Reason: SEVERE CONSITIPATION Clopidogrel Bisulfate (Plavix) 75 mg PO DAILY [facility] Last Admin: 01/03/18 08:21 Dose: 75 mg Diazepam (Valium) [address] [facility] Stop: 01/05/18 20:14 Diphenhydramine HCl (Benadryl) [address] [facility] [facility] Stop: 01/05/18 20:14 Famotidine (Pepcid Pf Inj) 20 mg IV.PUSH Q12HR [facility] Last Admin: 01/03/18 08:22 Dose: 20 mg Ceftriaxone Sodium 1,000 mg/ (Sodium Chloride) 100 mls @ 200 mls/hr IV.SIG Q24H [facility] Last Infusion: 01/03/18 06:25 Dose: Infused Sodium Chloride (Ns Inj) 1,000 mls @ 100 mls/hr IV.CONT .Q10H [facility] Last Admin: 01/03/18 03:26 Dose: 100 mls/hr Isosorbide Mononitrate (Imdur) 60 mg PO DAILY@0700 [facility] Last Admin: 01/03/18 06:13 Dose: 60 mg Lactulose (Lactulose Liq) 30 ml PO DAILY PRN PRN Reason: SEVERE CONSITIPATION Metoprolol Tartrate (Lopressor) 12.5 mg PO BID [facility] Last Admin: 01/03/18 08:22 Dose: 12.5 mg Miscellaneous (Pill Splitter) 1 each OTHER [facility] Morphine Sulfate (Morphine Inj) 2 mg IV.PUSH Q2H PRN PRN Reason: PAIN SCALE 6 TO 10 Senna/Docusate Sodium (Park-Colace) 1 tab PO BID [facility] Last Admin: 01/03/18 08:25 Dose: Not Given Sennosides (Senokot) 17.2 mg PO Q12H PRN PRN Reason: Moderate Constipation Sodium Chloride (Ns Flush) 2 ml IV.FLUSH BID [facility] Last Admin: 01/03/18 08:25 Dose: Not Given Sodium Chloride (Ns Flush) 2 ml IV.FLUSH PRN PRN PRN Reason: FLUSH AFTER USING IV ACCESS Allergies Allergy/AdvReac Type Severity Reaction Status Date / Time No Known Allergies Allergy Verified 12/28/17 17:38 Home Medications Medication Instructions Recorded Confirmed Type citalopram 20 mg PO DAILY 12/28/17 12/28/17 History diphenoxylate-atropine [Lomotil] 1 tab PO Q6-8H PRN 12/28/17 12/28/17 History lisinopril 10 mg PO DAILY 12/28/17 12/28/17 History metronidazole [Flagyl] 500 mg PO TID 12/28/17 12/28/17 History Physical Exam Vital signs: Vital Signs 01/02/18 11:00 01/02/18 11:05 01/02/18 12:00 Temperature 99.2 F Pulse Rate 59 L 64 58 L Respiratory Rate 18 Blood Pressure 144/69 H Pulse Oximetry 98 01/02/18 13:00 01/02/18 14:00 01/02/18 14:52 Temperature 99.4 F Pulse Rate 64 68 67 Respiratory Rate 18 Blood Pressure 148/76 H Pulse Oximetry 99 01/02/18 15:00 01/02/18 16:00 01/02/18 16:34 Temperature Pulse Rate 66 67 69 Respiratory Rate 18 Blood Pressure 156/82 H Pulse Oximetry 99 01/02/18 17:00 01/02/18 18:00 01/02/18 20:00 Temperature 99.2 F Pulse Rate 70 110 H 82 Respiratory Rate 18 Blood Pressure 132/55 L Pulse Oximetry 98 01/02/18 21:00 01/02/18 22:00 01/02/18 23:00 Temperature Pulse Rate 78 104 H 76 Respiratory Rate Blood Pressure Pulse Oximetry 01/03/18 00:00 01/03/18 01:00 01/03/18 02:00 Temperature 99.4 F Pulse Rate 82 80 72 Respiratory Rate 18 Blood Pressure 130/74 Pulse Oximetry 97 01/03/18 03:00 01/03/18 04:00 01/03/18 05:00 Temperature 99.5 F Pulse Rate 68 95 H 124 H Respiratory Rate 18 Blood Pressure 143/71 H Pulse Oximetry 97 01/03/18 06:00 01/03/18 07:00 01/03/18 08:00 Temperature Pulse Rate 72 70 94 H Respiratory Rate Blood Pressure Pulse Oximetry 01/03/18 08:17 01/03/18 09:00 01/03/18 10:00 Temperature 99.8 F H Pulse Rate 92 H 84 79 Respiratory Rate 18 Blood Pressure 131/66 Pulse Oximetry 97 Intake & Output 01/02/18 01/03/18 01/03/18 18:59 06:59 18:59 Intake Total 3250 / 3250 2600 / 2600 Output Total 850 / 850 400 / 400 Balance 2400 / 2400 2200 / 2200 Weight 75.9 kg Intake: IV 2750 / 2750 2600 / 2600 Heparin/NS PF Inj 1,500 ML @ 0 1500 / 1500 mls/hr .ROUTE .[facility] Rx#: [id number] NS Inj 1,000 ML @ 100 mls/hr IV 1000 / 1000 2500 / 2500 .CONT .Q10H [facility] Rx#:[id number] Rocephin Inj 1,000 MG In NS Inj 100 / 100 100 ML @ 200 mls/hr IV.SIG Q24H [facility] Rx#:[id number] Oral 500 / 500 Output: Urine 400 / 400 Urine Amount (Catheter) 850 / 850 Indwelling Urethral Catheter 850 / 850 Other: # Voids 1 Date of Last Bowel Movement 01/02/18 01/02/18 01/03/18 # Bowel Movements 1 1 Narrative: General patient in no acute distress HEENT extraocular movements are intact, clear oropharyngeal mucosa, well- healing scab on the left side of his forehead. Cardiovascular S1-S2 audible, RRR, no murmurs rubs or gallops Respiratory clear to auscultation bilaterally Abdomen soft, nontender, nondistended, normal bowel sounds Extremities no edema 2+ distal pulses in bilateral upper and lower extremities Neuro cranial nerves II through XII intact - Urinary Catheter Management Indwelling Urethral Catheter Cath placed during this visit: yes, but has since been removed by the nurse Urethral indwelling: Yes Reason for continuing: Decision to DC catheter Insertion date: 12/28/17 Insertion time: 22:15 Removal date: 01/02/18 Removal time: 18:18 Results 01/03/18 03:31 01/03/18 03:31 Cardiac Enzymes 01/02/18 01/03/18 Range/Units 10:06 03:31 AST 15 17 (15-37) U/L Coagulation 01/02/18 Range/Units 10: APTT 110.2 H* D (23.4-31.7) sec CBC 01/02/18 01/03/18 Range/Units 10: 03:31 WBC 4.8 5.6 (4.0-11.0) th/mm3 RBC 3.12 L 2.76 L (4.50-5.90) mil/mm3 Hgb 10.9 L 9.5 L (13.0-17.0) gm/dL Hct 31.0 L 27.4 L (39.0-51.0) % Plt Count 289 250 (150-450) th/mm3 Neut # (Auto) 3.4 3.9 (1.8-7.7) th/mm3 Lymph # (Auto) 0.8 L 0.9 L (1.0-4.8) th/mm3 [place] # (Auto) 0.4 0.5 (0.0-0.9) th/mm3 Eos # (Auto) 0.1 0.3 (0.0-0.4) th/mm3 Baso # (Auto) 0.0 0.0 (0.0-0.2) th/mm3 Comprehensive Metabolic Panel 01/02/18 01/03/18 Range/Units 10: 03:31 Sodium 140 143 (136-145) meq/L Potassium 3.9 3.6 (3.5-5.1) meq/L Chloride 105 110 H (98-107) meq/L Carbon Dioxide 25.8 25.0 (21.0-32.0) meq/L BUN 8 7 (7-18) mg/dL Creatinine 0.83 0.80 (0.60-1.30) mg/dL Calcium 7.7 L 7.4 L* (8.5-10.1) mg/dL AST 15 17 (15-37) U/L ALT 14 16 (12-78) U/L Alkaline Phosphatase 61 51 (45-117) U/L Total Protein 5.5 L 4.9 L D (6.4-8.2) g/dL Albumin 2.6 L 2.3 L (3.4-5.0) g/dL Intake and Output 01/02/18 01/03/18 01/03/18 22:59 06:59 14:59 Intake Total 500 / 500 2600 / 2600 Output Total 950 / 950 300 / 300 Balance -450 / -450 2300 / 2300 Intake: IV 2600 / 2600 NS Inj 1,000 ML @ 100 mls/hr IV 2500 / 2500 .CONT .Q10H [facility] Rx#:[id number] Rocephin Inj 1,000 MG In NS Inj 100 / 100 100 ML @ 200 mls/hr IV.SIG Q24H [facility] Rx#:[id number] Oral 500 / 500 Output: Urine 100 / 100 300 / 300 Urine Amount (Catheter) 850 / 850 Indwelling Urethral Catheter 850 / 850 Other: # Voids 1 Date of Last Bowel Movement 01/02/18 01/02/18 01/03/18 # Bowel Movements 1 1 Weight 75.9 kg Assessment and Plan - Assessment (1) ST elevation myocardial infarction (STEMI) of inferior wall, initial episode of care Code(s): I21.19 - ST elevation (STEMI) myocardial infarction involving other coronary artery of inferior wall Status: Acute Plan: Reperfused with heparin. Stable at present. He needs cath, high likelihood of needing revasc. Schedule 714 - hopefully renal function cont. to improve 01/03: s/p complex RCA stent. Cont ASA and clopidogrel (2) COPD (chronic obstructive pulmonary disease) Code(s): J44.9 - Chronic obstructive pulmonary disease, unspecified Status: Acute (3) Acute renal failure Code(s): N17.9 - Acute kidney failure, unspecified Status: Acute Plan: renal fn stable post cath - Plan OK with me to DC home (3) Acute renal failure Qualifiers: Qualified Code(s): N17.9 - Acute kidney failure, unspecified
--- NOTE | 2018-01-03 10:51 | P.DS ---
Date of admission: 12/28/17 19:37 Primary care physician: Michel Bonilla DO Brief History from admission: This patient is a 67-year-old male with a diagnosis of hypertension. The patient presented to the emergency department initially with hypotension dizziness and weakness. The patient stated he was heavily drinking over the past week prior to admission. DS: Medications - Discharge Medications Prescriptions: amlodipine [Norvasc] 10 mg PO DAILY #30 tab aspirin 81 mg PO DAILY #30 tab atorvastatin 40 mg PO HS #30 tab clopidogrel [Plavix] 75 mg PO DAILY #30 tab isosorbide mononitrate 60 mg PO DAILY@0700 #30 tab metoprolol tartrate 12.5 mg PO BID #60 tab DS: Summary Hospital Course: This patient is a 67-year-old male with a diagnosis of hypertension. The patient presented to the emergency department initially with hypotension dizziness and weakness. The patient stated he was heavily drinking over the past week prior to admission. 1. ST segment elevation [place] 2. Acute kidney injury, prerenal secondary to dehydration. 3. Hypertension 4. Alcohol use On arrival the patient was found to be hypotensive, labs showed a significantly elevated serum creatinine. Troponin was elevated and peaked at 0.36. EKG showed ST segment elevations in the inferior leads. Cardiology was consulted and recommended a cardiac catheterization however the patient serum creatinine was significantly elevated. He was in the intensive care unit and aggressively resuscitated with IV fluids. Serum creatinine normalized the patient subsequently underwent cardiac catheterization. The patient had three-vessel coronary artery disease with 2 drug-eluting stents placed to the RCA. The cath also showed persistent disease of the circumflex which can be stented in the future if he develops any recurrent ischemia. The patient has not had any chest pain since the cardiac catheterization. He will be discharged home today. The benefits and risks of medication compliance was discussed in detail with the patient. He will be continued on aspirin, statin, Plavix, beta-shahnaz. He will also be continued on Norvasc for blood pressure control. No signs of alcohol withdrawal patient was in house. Patient was also advised to abstain from alcohol. He says he will stop drinking. Patient says he will follow-up with a new primary care physician. He says he wants to find a primary care physician on his own. - Time Spent with Patient Total time spent providing and/or coordinating discharge services: Greater than 30 minutes Exam Vital signs: Vital Signs 01/02/18 11:00 01/02/18 11:05 01/02/18 12:00 Temperature 99.2 F Pulse Rate 59 L 64 58 L Respiratory Rate 18 Blood Pressure 144/69 H Pulse Oximetry 98 01/02/18 13:00 01/02/18 14:00 01/02/18 14:52 Temperature 99.4 F Pulse Rate 64 68 67 Respiratory Rate 18 Blood Pressure 148/76 H Pulse Oximetry 99 01/02/18 15:00 01/02/18 16:00 01/02/18 16:34 Temperature Pulse Rate 66 67 69 Respiratory Rate 18 Blood Pressure 156/82 H Pulse Oximetry 99 01/02/18 17:00 01/02/18 18:00 01/02/18 20:00 Temperature 99.2 F Pulse Rate 70 110 H 82 Respiratory Rate 18 Blood Pressure 132/55 L Pulse Oximetry 98 01/02/18 21:00 01/02/18 22:00 01/02/18 23:00 Temperature Pulse Rate 78 104 H 76 Respiratory Rate Blood Pressure Pulse Oximetry 01/03/18 00:00 01/03/18 01:00 01/03/18 02:00 Temperature 99.4 F Pulse Rate 82 80 72 Respiratory Rate 18 Blood Pressure 130/74 Pulse Oximetry 97 01/03/18 03:00 01/03/18 04:00 01/03/18 05:00 Temperature 99.5 F Pulse Rate 68 95 H 124 H Respiratory Rate 18 Blood Pressure 143/71 H Pulse Oximetry 97 01/03/18 06:00 01/03/18 07:00 01/03/18 08:00 Temperature Pulse Rate 72 70 94 H Respiratory Rate Blood Pressure Pulse Oximetry 01/03/18 08:17 01/03/18 09:00 01/03/18 10:00 Temperature 99.8 F H Pulse Rate 92 H 84 79 Respiratory Rate 18 Blood Pressure 131/66 Pulse Oximetry 97 Intake & Output 01/02/18 01/03/18 01/03/18 18:59 06:59 18:59 Intake Total 3250 / 3250 2600 / 2600 Output Total 850 / 850 400 / 400 Balance 2400 / 2400 2200 / 2200 Weight 75.9 kg Intake: IV 2750 / 2750 2600 / 2600 Heparin/NS PF Inj 1,500 ML @ 0 1500 / 1500 mls/hr .ROUTE .[facility] Rx#: [id number] NS Inj 1,000 ML @ 100 mls/hr IV 1000 / 1000 2500 / 2500 .CONT .Q10H [facility] Rx#:[id number] Rocephin Inj 1,000 MG In NS Inj 100 / 100 100 ML @ 200 mls/hr IV.SIG Q24H [facility] Rx#:[id number] Oral 500 / 500 Output: Urine 400 / 400 Urine Amount (Catheter) 850 / 850 Indwelling Urethral Catheter 850 / 850 Other: # Voids 1 Date of Last Bowel Movement 01/02/18 01/02/18 01/03/18 # Bowel Movements 1 1 Results Procedures completed during hospitalization: Cardiac catheterization Labs on day of discharge: Labs from last 24 hours 01/03/18 01/03/18 01/02/18 03:31 03:31 10:06 WBC 5.6 RBC 2.76 L Hgb 9.5 L Hct 27.4 L MCV 99.3 MCH 34.3 H MCHC 34.6 RDW 13.1 Plt Count 250 MPV 7.9 Neut % (Auto) 69.1 Lymph % (Auto) 16.3 [place] % (Auto) 9.5 H Eos % (Auto) 4.6 H Baso % (Auto) 0.5 Neut # (Auto) 3.9 Lymph # (Auto) 0.9 L [place] # (Auto) 0.5 Eos # (Auto) 0.3 Baso # (Auto) 0.0 WBC Differential . Differential Comment Auto diff final APTT 110.2 H* D Sodium 143 Potassium 3.6 Chloride 110 H Carbon Dioxide 25.0 Anion Gap 8 BUN 7 Creatinine 0.80 Estimated GFR Greater than 89 Random Glucose 79 Calcium 7.4 L* Prot Corrected Calcium 8.6 Total Bilirubin 0.2 AST 17 ALT 16 Alkaline Phosphatase 51 Total Creatine Kinase 71 Total Protein 4.9 L D Albumin 2.3 L 01/02/18 01/02/18 10:06 10:06 WBC 4.8 RBC 3.12 L Hgb 10.9 L Hct 31.0 L MCV 99.3 MCH 34.8 H MCHC 35.0 RDW 13.1 Plt Count 289 MPV 7.8 Neut % (Auto) 71.6 H Lymph % (Auto) 16.8 [place] % (Auto) 9.1 H Eos % (Auto) 1.9 Baso % (Auto) 0.6 Neut # (Auto) 3.4 Lymph # (Auto) 0.8 L [place] # (Auto) 0.4 Eos # (Auto) 0.1 Baso # (Auto) 0.0 WBC Differential . Differential Comment Auto diff final APTT Sodium 140 Potassium 3.9 Chloride 105 Carbon Dioxide 25.8 Anion Gap 9 BUN 8 Creatinine 0.83 Estimated GFR Greater than 89 Random Glucose 93 Calcium 7.7 L Prot Corrected Calcium Total Bilirubin 0.2 AST 15 ALT 14 Alkaline Phosphatase 61 Total Creatine Kinase Total Protein 5.5 L Albumin 2.6 L - Impressions ITS Impressions Cervical Spine CT 12/28/17 17:43 CONCLUSION: 1. Negative trauma CT. Head CT 12/28/17 17:43 CONCLUSION: 1. Negative trauma CT. . Abdomen/Bladder Ultrasound 12/29/17 00:00 CONCLUSION: 1. Kidneys are unremarkable. Aponte catheter in place Discharge Plan - Discharge Disposition Patient Disposition: Discharge Home - Discharge Condition Condition: Stable - Discharge Order Discharge Orders: Discharge Order (Routine); Ordered 01/03/18 Ordered By: Rosa Shook - Physicians Team Primary Care Provider: Michel Bonilla Attending Provider: Rosa Shook Other Providers: Aamir Cardoso MD ; Antione Celeste MD
== END 2018-01-03 11:39 | disposition home or self-care (01) ==
LOC: PHED 15:48 → PHEDA 19:37 → HCVI 21:14 → HCIN 12-30 15:06
PROVIDERS: ADMIT Hospitalist; ATTEND Hospitalist